=== PATIENT | male | born 1985 | race African-American/Black ===

== ENCOUNTER 2017-05-08 12:09 | Inpatient (IN) | payer OTHER ==
[2017-05-08 15:05] VITALS: BMI 21.7
--- NOTE | 2017-05-08 18:09 | HP ---
COWS - Scale Resting Pulse: 1= [place] 81-100 Sweatin= Chills/Flushing Restless Observation: 1= Difficult to Sit Still Pupil Size: 1= Pupils >than Normal Bone or Joint Aches: 1= Mild Discomfort Runny Nose/ Eye Tearin= Nasal Congestion GI Upset > 30mins: 2= Nausea/Diarrhea Tremor Observation: 2= Slight Tremor Visible Yawning Observation: 1= 1-2x During Session Anxiety or Irritability: 2=Irritable/Anxious Goose Flesh Skin: 3=Piloerection COWS Score: 16 CIWA Score - CIWA Score Nausea/Vomitin Muscle Tremors: 4-Moderate,w/Arms Extend Anxiety: 4-Mod. Anxious/Guarded Agitation: 4-Moderately Restless Paroxysmal Sweats: 3 Orientation: 0-Oriented Tacttile Disturbances: 0-None Auditory Disturbances: 0-None Visual Disturbances: 0-None Headache: 0-None Present CIWA-Ar Total Score: 18 Admission ROS S - HPI Chief Complaint: withdrawal sx from alcohol, heroin and benzodiazepines Allergies/Adverse Reactions: Allergies Allergy/AdvReac Type Severity Reaction Status Date / Time No Known Allergies Allergy Verified 05/08/17 15:38 History of Present Illness: 31 yo m with h/o polysubstance use - daily heroin, alcohol and benzodizepines use, now c/o withdral sx. last used this am. no h/o seizures or DTS in past. PMHX anxiety, depression and insomnia. no h/o OD, no SI at present, thirsty. first admission to [facility] was in treatment as child. Exam Limitations: No Limitations - Ebola screening Have you traveled outside of the country in the last 21 days: No Have you had contact with anyone from an Ebola affected area: No Have you been sick,other than usual withdrawal symptoms: No Do you have a fever: No - Review of Systems Constitutional: Chills, Diaphoresis, Changes in sleep, Weakness, Unintentional Wgt. Loss EENT: reports: Nose Congestion Respiratory: reports: No Symptoms reported Cardiac: reports: No Symptoms Reported GI: reports: Diarrhea, Difficulty Swallowing, Nausea, Poor Appetite, Poor Fluid Intake, Vomiting, Indigestion, Abdominal cramping : reports: No Symptoms Reported Musculoskeletal: reports: Back Pain, Joint Pain, Muscle Pain Integumentary: reports: Flushing, Sweating Neuro: reports: Numbness, Paresthesia, Tingling, Tremors, Weakness Endocrine: reports: Increased Thirst Hematology: reports: No Symptoms Reported Psychiatric: reports: Judgement Intact, Mood/Affect Appropiate, Orientated x3, Anxious, Depressed Other Systems: Reviewed and Negative Patient History - Patient Medical History Hx Anemia: No Hx Asthma: No Hx Chronic Obstructive Pulmonary Disease (COPD): No Hx Cancer: No Hx Cardiac Disorders: No Hx Congestive Heart Failure: No Hx Hypertension: No Hx Hypercholesterolemia: No Hx Pacemaker: No HX Cerebrovascular Accident: No Hx Seizures: No Hx Dementia: No Hx Diabetes: No Hx Gastrointestinal Disorders: No Hx Liver Disease: No Hx Genitourinary Disorders: No Hx Sexually Transmitted Disorders: No Hx Renal Disease (ESRD): No Hx Thyroid Disease: No Hx Human Immunodeficiency Virus (HIV): No Hx Hepatitis C: No Hx Depression: Yes (when withdrawing) Hx Suicide Attempt: No (no SI) Hx Bipolar Disorder: No Hx Schizophrenia: No - Patient Surgical History Past Surgical History: No Anesthesia Reaction: No - PPD History Previous Implant?: Yes Documented Results: Negative w/o proof Implanted On Prior [facility] Admission?: No PPD to be Administered?: Yes - Reproductive History Patient is a Female of Child Bearing Age (11 -55 yrs old): No Patient : No - Smoking Cessation Smoking history: Current every day smoker Aproximately how many cigarettes per day: 5 Hx Chewing Tobacco Use: No Initiated information on smoking cessation: Yes 'Breaking Loose' booklet given: 05/08/17 - Substance & Tx. History Hx Alcohol Use: Yes Hx Substance Use: Yes Substance Use Type: Alcohol, Heroin, Opiates, Prescribed, Tranquilizers Hx Substance Use Treatment: Yes - Substances Abused Alcohol Route: Oral Frequency: Daily Amount used: RUM(1 PINT) Age of first use: 18 Date of Last Use: 05/08/17 Heroin Route: Inhalation Frequency: Daily Amount used: 3-4 BAGS Age of first use: 30 Date of Last Use: 05/08/17 Benzodiazepine (Klonopin) Route: Oral Frequency: 3-6 times per week Amount used: sticks 1-2 at night Age of first use: 30 Date of Last Use: 05/01/17 Family Disease History - Family Disease History Family History: Denies Admission Physical Exam [facility] - Vital Signs Vital Signs: Vital Signs - 24 hr 05/08/17 14:55 Temperature 96.2 F L Pulse Rate 95 H Respiratory 20 Rate Blood Pressure 128/96 - Physical General Appearance: Yes: Nourished, Appropriately Dressed, Disheveled, Mild Distress, Thin, Tremorous, Irritable, Sweating, Anxious HEENTM: Yes: EOMI, Hearing grossly Normal, Normal ENT Inspection, Normocephalic , Normal Voice, KYMBERLY, Pharynx Normal, Nasal Congestion, Rhinorrhea Respiratory: Yes: Within Normal Limits, Chest Non-Tender, Lungs Clear, Normal Breath Sounds, No Respiratory Distress, No Accessory Muscle Use Neck: Yes: Within Normal Limits, No masses,lesions,Nodules, Supple, Trachea in good position Breast: Yes: Breast Exam Deferred Cardiology: Yes: Within Normal Limits, Regular Rhythm, Regular Rate, S1, S2 Abdominal: Yes: Normal Bowel Sounds, Non Tender, Flat, Soft, Increased Bowel Sounds Genitourinary: Yes: Within Normal Limits Back: Yes: Muscle Spasm Musculoskeletal: Yes: Within Normal Limits, full range of Motion, Gait Steady, Pelvis Stable Extremities: Yes: Normal Capillary Refill, Normal Range of Motion, Non-Tender, Tremors Neurological: Yes: rabbit fancier II-XII NML intact, Fully Oriented, Alert, Motor Strength 5/5, Normal Response, Depressed Affect Integumentary: Yes: Normal Color, Warm, Diaphoresis, Moist, Other (poor skin turgor) Lymphatic: Yes: Within Normal Limits - Addiitonal Findings: withdrawal sx present - Diagnostic (1) Opioid dependence with withdrawal Current Visit: Yes Status: Acute (2) Alcohol dependence with uncomplicated withdrawal Current Visit: Yes Status: Acute (3) Nicotine dependence Current Visit: Yes Status: Acute (4) Depression Current Visit: Yes Status: Acute (5) Dehydration Current Visit: Yes Status: Acute Cleared for Admission [facility] - Detox or Rehab [facility] Level of Care: Medically Managed Detox Regimen/Protocol: Methadone/Librium [facility] Breath Alcohol Content Breath Alcohol Content: 0 Urine Drug Screen - Results Drug Screen Negative: No Urine Drug Screen Results: OPI-Opiates
[2017-05-08] MEDS ORDERED: ACETAMINOPHEN 325 MG TABLET (FP) PO PRN (18:12)
[2017-05-08] MEDS ORDERED: guaiFENesin/D-METHORPHAN HB 10 ML UNIT-DOSE CUPS PO PRN (18:12)
[2017-05-08] MEDS ORDERED: MAGNESIUM CITRATE 300 ML BOTTLE PO PRN (18:12)
[2017-05-08] MEDS ORDERED: IBUPROFEN 400 MG TABLET (FP) PO PRN (18:12)
[2017-05-08] MEDS ORDERED: chlordiazePOXIDE HCL 25 MG CAPSULE PO PRN (18:12)
[2017-05-08] MEDS ORDERED: MAGNESIUM HYDROX 2400MG/30ML ORAL SUSPENSION 30 ML CUP PO PRN (18:12)
[2017-05-08] MEDS ORDERED: LOPERAMIDE HCL 2 MG CAPSULE PO PRN (18:12)
[2017-05-08] MEDS ORDERED: MENTHOL/PHENOL 1 EACH UD MM PRN (18:12)
[2017-05-08] MEDS ORDERED: P-EPHED 60MG/TRIPROLIDI 2.5MG TABLET PO PRN (18:12)
[2017-05-08] MEDS ORDERED: MAG HYDROX/AL HYDROX/SIMETH 30 ML UNIT-DOSE CUP PO PRN (18:12)
[2017-05-08] MEDS ORDERED: NICOTINE POLACRILEX 4 MG GUM BUC PRN (18:13)
[2017-05-08] MEDS ORDERED: METHADONE HCL 10 MG TABLET (FOR DETOX USE ONLY) PO ONE ×2 (18:45→23:00)
[2017-05-08] MEDS: NICOTINE 21 MG/24 HOURS TOPICAL PATCH TD SCH (18:58)
[2017-05-08] MEDS: chlordiazePOXIDE HCL 25 MG CAPSULE PO SCH (22:05)
[2017-05-08] MEDS: THIAMINE HCL 100 MG TABLET (FP) PO SCH (22:05)
[2017-05-08 23:17] LABS: URINE APPEARANCE CLEAR; URINE BILIRUBIN NEGATIVE (NEGATIVE); URINE BLOOD NEGATIVE (NEGATIVE); URINE COLOR YELLOW; URINE GLUCOSE (UA) NEGATIVE (NEGATIVE); URINE KETONE NEGATIVE (NEGATIVE); URINE LEUK ESTERASE NEGATIVE (NEGATIVE); URINE NITRITE NEGATIVE (NEGATIVE); URINE PROTEIN NEGATIVE (NEGATIVE); URINE UROBILINOGEN NEGATIVE mg/dL (0.2-1.0)
[2017-05-09] MEDS: chlordiazePOXIDE HCL 25 MG CAPSULE PO SCH ×4 (05:00→22:04)
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
[2017-05-09 09:44] LABS: MCH 29.1 pg (25.7-33.7); MCHC 32.7 g/dl (32.0-35.9); MEAN CELL VOLUME 88.8 fl (80-96); PLATELET COUNT 238 K/MM3 (134-434); RDW 13.3 % (11.9-15.9); WHITE BLOOD COUNT 14.2 K/mm3 (4.0-10.0)
[2017-05-09] MEDS ORDERED: METHADONE HCL 10 MG TABLET (FOR DETOX USE ONLY) PO SCH (10:00)
[2017-05-09 10:08] LABS: ALBUMIN 3.9 g/dl (3.4-5.0); ALK PHOS 91 U/L (45-117); ANION GAP 6 (8-16); BILIRUBIN,TOTAL 0.7 mg/dL (0.2-1.0); CALCIUM 9.8 mg/dL (8.5-10.1); CO2 32 mmol/L (21-32); CREATININE 0.9 mg/dL (0.7-1.3); GLUCOSE,RANDOM 69 mg/dL (74-106); SGOT/AST 14 U/L (15-37); SGPT/ALT 22 U/L (12-78); TOT PROT 7.7 g/dl (6.4-8.2)
[2017-05-09] MEDS: NICOTINE 21 MG/24 HOURS TOPICAL PATCH TD SCH (10:10)
[2017-05-09] MEDS: PRENATAL VITAMINS W/ FOLIC ACID TABLET (FP) PO SCH (10:12)
[2017-05-09 12:12] LABS: URINE LEUK ESTERASE Negative (NEGATIVE)
--- NOTE | 2017-05-09 13:12 | PN ---
[facility] CIWA - CIWA Score Nausea/Vomitin-No Nausea/No Vomiting Muscle Tremors: 4-Moderate,w/Arms Extend Anxiety: 3 Agitation: 1-Slight > Activity Paroxysmal Sweats: No Perspiration Orientation: 0-Oriented Tacttile Disturbances: 2-Mild Itch/Numbness/Burn Auditory Disturbances: 2-Mild Harshness/Frighten Visual Disturbances: 2-Mild Sensitivity Headache: 4-Moderately Severe CIWA-Ar Total Score: 18 S COWS - Scale Resting Pulse: 1= [place] 81-100 Sweatin= Chills/Flushing Restless Observation: 1= Difficult to Sit Still Pupil Size: 0= Normal to Room Light Bone or Joint Aches: 2= Severe Diffuse Aches Runny Nose/ Eye Tearin= Nasal Congestion GI Upset > 30mins: 1= Stomach Cramp Tremor Observation of Outstretched Hands: 2= Slight Tremor Visible Yawning Observation: 1= 1-2x During Session Anxiety or Irritability: 2=Irritable/Anxious Goose Flesh Skin: 3=Piloerection COWS Score: 15 [facility] Progress Note (SOAP) Subjective: Stomach Cramping, Tremors, H/A, Fatigue, Body Aches. Objective: PT. A & O X 3. NO ACUTE DISTRESS. 05/09/17 13:12 Vital Signs Temperature 97.0 F L 05/09/17 09:38 Pulse Rate 98 H 05/09/17 09:38 Respiratory Rate 18 05/09/17 09:38 Blood Pressure 119/82 05/09/17 09:38 O2 Sat by Pulse Oximetry (%) Laboratory Tests 05/08/17 05/09/17 05/09/17 21:07 07:50 07:50 WBC 14.2 H RBC 4.87 Hgb 14.2 Hct 43.3 MCV 88.8 MCH 29.1 MCHC 32.7 RDW 13.3 Plt Count 238 MPV 10.0 Sodium 139 Potassium 4.6 Chloride 101 Carbon Dioxide 32 Anion Gap 6 L BUN 17 Creatinine 0.9 Creat Clearance w eGFR > 60 Random Glucose 69 L Calcium 9.8 Total Bilirubin 0.7 AST 14 L ALT 22 Alkaline Phosphatase 91 Total Protein 7.7 Albumin 3.9 Urine Color Yellow Urine Appearance Clear Urine pH 6.0 Ur Specific [place] 1.015 Urine Protein Negative Urine Glucose (UA) Negative Urine Ketones Negative Urine Blood Negative Urine Nitrite Negative Urine Bilirubin Negative Urine Urobilinogen Negative Ur Leukocyte Esterase Negative RPR Titer 05/09/17 07:50 WBC RBC Hgb Hct MCV MCH MCHC RDW Plt Count MPV Sodium Potassium Chloride Carbon Dioxide Anion Gap BUN Creatinine Creat Clearance w eGFR Random Glucose Calcium Total Bilirubin AST ALT Alkaline Phosphatase Total Protein Albumin Urine Color Urine Appearance Urine pH Ur Specific [place] Urine Protein Urine Glucose (UA) Urine Ketones Urine Blood Urine Nitrite Urine Bilirubin Urine Urobilinogen Ur Leukocyte Esterase RPR Titer Nonreactive LABS NOTED. Assessment: 05/09/17 13:12 WITHDRAWAL SYMPTOMS. Plan: CONTINUE DETOX. INCREASE DAILY PO FLUID INTAKE.
[2017-05-09] MEDS: THIAMINE HCL 100 MG TABLET (FP) PO SCH (22:04)
[2017-05-10] MEDS: chlordiazePOXIDE HCL 25 MG CAPSULE PO SCH ×3 (05:11→17:10)
--- NOTE | 2017-05-10 08:41 | EKG ---
Test Reason : Blood Pressure : / mmHG Vent. Rate : 054 BPM Atrial Rate : 054 BPM P-R Int : 170 ms QRS Dur : 094 ms QT Int : 430 ms P-R-T Axes : 072 019 064 degrees QTc Int : 407 ms SINUS BRADYCARDIA OTHERWISE NORMAL ECG NO PREVIOUS ECGS AVAILABLE Confirmed by JOHNNY REYES MD ([id number]) on 05/10/2017 8:41:04 AM Referred By: Confirmed By:JOHNNY REYES MD
[2017-05-10] MEDS: PRENATAL VITAMINS W/ FOLIC ACID TABLET (FP) PO SCH (10:07)
[2017-05-10] MEDS: METHADONE HCL 5 MG TABLET (FOR DETOX USE ONLY) PO SCH (10:07)
[2017-05-10] MEDS: NICOTINE 21 MG/24 HOURS TOPICAL PATCH TD SCH (10:07)
--- NOTE | 2017-05-10 12:12 | PN ---
S CIWA - CIWA Score Nausea/Vomitin Muscle Tremors: 3 Anxiety: 3 Agitation: 3 Paroxysmal Sweats: 3 Orientation: 0-Oriented Tacttile Disturbances: 1-Very Mild Itch/Numbness Auditory Disturbances: 0-None Visual Disturbances: 0-None Headache: 1-Very Mild CIWA-Ar Total Score: 16 [facility] COWS - Scale Resting Pulse: 2= [place] 101-120 Sweatin=Flushed/Facial Moisture Restless Observation: 3= Extraneous Movement Pupil Size: 0= Normal to Room Light Bone or Joint Aches: 2= Severe Diffuse Aches Runny Nose/ Eye Tearin= Runny Nose/Eyes GI Upset > 30mins: 2= Nausea/Diarrhea Tremor Observation of Outstretched Hands: 2= Slight Tremor Visible Yawning Observation: 0= None Anxiety or Irritability: 2=Irritable/Anxious Goose Flesh Skin: 0=Smooth Skin COWS Score: 17 [facility] Progress Note (SOAP) Subjective: Sweating, headache, nausea, restless, anxious, headache Objective: 05/10/17 12:10 Last Vital Signs Temp Pulse Resp BP Pulse Ox 97.9 F 108 H 18 119/89 05/10/17 10:24 05/10/17 10:24 05/10/17 10:24 05/10/17 10:24 Laboratory Tests 05/08/17 05/09/17 05/09/17 21:07 07:50 07:50 WBC 14.2 H RBC 4.87 Hgb 14.2 Hct 43.3 MCV 88.8 MCH 29.1 MCHC 32.7 RDW 13.3 Plt Count 238 MPV 10.0 Sodium 139 Potassium 4.6 Chloride 101 Carbon Dioxide 32 Anion Gap 6 L BUN 17 Creatinine 0.9 Creat Clearance w eGFR > 60 Random Glucose 69 L Calcium 9.8 Total Bilirubin 0.7 AST 14 L ALT 22 Alkaline Phosphatase 91 Total Protein 7.7 Albumin 3.9 Urine Color Yellow Urine Appearance Clear Urine pH 6.0 Ur Specific [place] 1.015 Urine Protein Negative Urine Glucose (UA) Negative Urine Ketones Negative Urine Blood Negative Urine Nitrite Negative Urine Bilirubin Negative Urine Urobilinogen Negative Ur Leukocyte Esterase Negative RPR Titer 05/09/17 07:50 WBC RBC Hgb Hct MCV MCH MCHC RDW Plt Count MPV Sodium Potassium Chloride Carbon Dioxide Anion Gap BUN Creatinine Creat Clearance w eGFR Random Glucose Calcium Total Bilirubin AST ALT Alkaline Phosphatase Total Protein Albumin Urine Color Urine Appearance Urine pH Ur Specific [place] Urine Protein Urine Glucose (UA) Urine Ketones Urine Blood Urine Nitrite Urine Bilirubin Urine Urobilinogen Ur Leukocyte Esterase RPR Titer Nonreactive Labs noted: wbc 14.2 Assessment: 05/10/17 12:10 Withdrawal symptoms Noted with leukocytosis Plan: Continue detox Leukocytosis: asymptomatic, repeat cbc
[2017-05-10] MEDS: THIAMINE HCL 100 MG TABLET (FP) PO SCH (22:06)
[2017-05-10] MEDS: chlordiazePOXIDE 5 MG CAPSULE PO SCH (22:07)
[2017-05-11] MEDS: chlordiazePOXIDE 5 MG CAPSULE PO SCH ×3 (05:02→17:19)
[2017-05-11] MEDS: NICOTINE 21 MG/24 HOURS TOPICAL PATCH TD SCH (10:04)
[2017-05-11] MEDS: PRENATAL VITAMINS W/ FOLIC ACID TABLET (FP) PO SCH (10:04)
[2017-05-11] MEDS: METHADONE HCL 5 MG TABLET (FOR DETOX USE ONLY) PO SCH (10:04)
[2017-05-11 10:47] LABS: BASOPHIL 0.6 % (0-2.0); EOSINOPHIL 3.9 % (0-4.5); MCH 28.8 pg (25.7-33.7); MCHC 32.1 g/dl (32.0-35.9); MEAN CELL VOLUME 89.6 fl (80-96); MEAN PLT VOLUME 10.2 fl (7.5-11.1); PLATELET COUNT 256 K/MM3 (134-434); WHITE BLOOD COUNT 10.1 K/mm3 (4.0-10.0)
--- NOTE | 2017-05-11 11:19 | PN ---
[facility] Progress Note (SOAP) Subjective: Tremors, Fatigue, Sweating. Objective: PT. A & O X 3. NO ACUTE DISTRESS. 05/11/17 11:16 Vital Signs Temperature 98.1 F 05/11/17 09:15 Pulse Rate 85 05/11/17 09:15 Respiratory Rate 18 05/11/17 09:15 Blood Pressure 115/81 05/11/17 09:15 O2 Sat by Pulse Oximetry (%) Laboratory Tests 05/08/17 05/09/17 05/09/17 21:07 07:50 07:50 WBC 14.2 H RBC 4.87 Hgb 14.2 Hct 43.3 MCV 88.8 MCH 29.1 MCHC 32.7 RDW 13.3 Plt Count 238 MPV 10.0 Neutrophils % Lymphocytes % Monocytes % Eosinophils % Basophils % Sodium 139 Potassium 4.6 Chloride 101 Carbon Dioxide 32 Anion Gap 6 L BUN 17 Creatinine 0.9 Creat Clearance w eGFR > 60 Random Glucose 69 L Calcium 9.8 Total Bilirubin 0.7 AST 14 L ALT 22 Alkaline Phosphatase 91 Total Protein 7.7 Albumin 3.9 Urine Color Yellow Urine Appearance Clear Urine pH 6.0 Ur Specific [place] 1.015 Urine Protein Negative Urine Glucose (UA) Negative Urine Ketones Negative Urine Blood Negative Urine Nitrite Negative Urine Bilirubin Negative Urine Urobilinogen Negative Ur Leukocyte Esterase Negative RPR Titer 05/09/17 05/11/17 07:50 07:00 WBC 10.1 H RBC 5.20 Hgb 15.0 Hct 46.6 MCV 89.6 MCH 28.8 MCHC 32.1 RDW 13.0 Plt Count 256 MPV 10.2 Neutrophils % 55.0 Lymphocytes % 29.6 Monocytes % 10.9 H Eosinophils % 3.9 Basophils % 0.6 Sodium Potassium Chloride Carbon Dioxide Anion Gap BUN Creatinine Creat Clearance w eGFR Random Glucose Calcium Total Bilirubin AST ALT Alkaline Phosphatase Total Protein Albumin Urine Color Urine Appearance Urine pH Ur Specific [place] Urine Protein Urine Glucose (UA) Urine Ketones Urine Blood Urine Nitrite Urine Bilirubin Urine Urobilinogen Ur Leukocyte Esterase RPR Titer Nonreactive LABS NOTED. Assessment: 05/11/17 11:17 WITHDRAWAL SYMPTOMS. Plan: CONTINUE DETOX. INCREASE DAILY PO FLUID INTAKE. ENCOURAGE AMBULATION.
[2017-05-11] MEDS: chlordiazePOXIDE HCL 10 MG CAPSULE PO SCH (22:13)
[2017-05-11] MEDS: THIAMINE HCL 100 MG TABLET (FP) PO SCH (22:13)
[2017-05-12] MEDS: chlordiazePOXIDE HCL 10 MG CAPSULE PO SCH ×3 (05:07→17:30)
--- NOTE | 2017-05-12 09:49 | PN ---
S Progress Note (SOAP) Subjective: mild tremor insomnia irritable Objective: 05/12/17 09:48 Vital Signs Temperature 97.1 F L 05/12/17 09:08 Pulse Rate 101 H 05/12/17 09:08 Respiratory Rate 18 05/12/17 09:08 Blood Pressure 124/92 05/12/17 09:08 O2 Sat by Pulse Oximetry (%) Laboratory Last Values WBC 10.1 K/mm3 (4.0-10.0) H 05/11/17 07:00 RBC 5.20 M/mm3 (4.00-5.60) 05/11/17 07:00 Hgb 15.0 GM/dL (11.7-16.9) 05/11/17 07:00 Hct 46.6 % (35.4-49) 05/11/17 07:00 MCV 89.6 fl (80-96) 05/11/17 07:00 MCH 28.8 pg (25.7-33.7) 05/11/17 07:00 MCHC 32.1 g/dl (32.0-35.9) 05/11/17 07:00 RDW 13.0 % (11.9-15.9) 05/11/17 07:00 Plt Count 256 K/MM3 (134-434) 05/11/17 07:00 MPV 10.2 fl (7.5-11.1) 05/11/17 07:00 Neutrophils % 55.0 % (42.8-82.8) 05/11/17 07:00 Lymphocytes % 29.6 % (8-40) 05/11/17 07:00 Monocytes % 10.9 % (3.8-10.2) H 05/11/17 07:00 Eosinophils % 3.9 % (0-4.5) 05/11/17 07:00 Basophils % 0.6 % (0-2.0) 05/11/17 07:00 Sodium 139 mmol/L (136-145) 05/09/17 07:50 Potassium 4.6 mmol/L (3.5-5.1) 05/09/17 07:50 Chloride 101 mmol/L (98-107) 05/09/17 07:50 Carbon Dioxide 32 mmol/L (21-32) 05/09/17 07:50 Anion Gap 6 (8-16) L 05/09/17 07:50 BUN 17 mg/dL (7-18) 05/09/17 07:50 Creatinine 0.9 mg/dL (0.7-1.3) 05/09/17 07:50 Creat Clearance w eGFR > 60 (>60) 05/09/17 07:50 Random Glucose 69 mg/dL (74-106) L 05/09/17 07:50 Calcium 9.8 mg/dL (8.5-10.1) 05/09/17 07:50 Total Bilirubin 0.7 mg/dL (0.2-1.0) 05/09/17 07:50 AST 14 U/L (15-37) L 05/09/17 07:50 ALT 22 U/L (12-78) 05/09/17 07:50 Alkaline Phosphatase 91 U/L (45-117) 05/09/17 07:50 Total Protein 7.7 g/dl (6.4-8.2) 05/09/17 07:50 Albumin 3.9 g/dl (3.4-5.0) 05/09/17 07:50 Urine Color Yellow 05/08/17 21:07 Urine Appearance Clear 05/08/17 21:07 Urine pH 6.0 (5.0-8.0) 05/08/17 21:07 Ur Specific [place] 1.015 (1.001-1.035) 05/08/17 21:07 Urine Protein Negative (NEGATIVE) 05/08/17 21:07 Urine Glucose (UA) Negative (NEGATIVE) 05/08/17 21:07 Urine Ketones Negative (NEGATIVE) 05/08/17 21:07 Urine Blood Negative (NEGATIVE) 05/08/17 21:07 Urine Nitrite Negative (NEGATIVE) 05/08/17 21:07 Urine Bilirubin Negative (NEGATIVE) 05/08/17 21:07 Urine Urobilinogen Negative mg/dL (0.2-1.0) 05/08/17 21:07 Ur Leukocyte Esterase Negative (NEGATIVE) 05/08/17 21:07 RPR Titer Nonreactive (NONREACTIVE) 05/09/17 07:50 lab noted Assessment: 05/12/17 09:48 mild withdrawal sx Plan: observation with detox regimen
[2017-05-12] MEDS ORDERED: METHADONE HCL 10 MG TABLET (FOR DETOX USE ONLY) PO SCH (10:00)
[2017-05-12] MEDS: NICOTINE 21 MG/24 HOURS TOPICAL PATCH TD SCH (10:08)
[2017-05-12] MEDS: PRENATAL VITAMINS W/ FOLIC ACID TABLET (FP) PO SCH (10:08)
--- NOTE | 2017-05-12 18:58 | PN ---
Psychiatric Progress Note Vital Signs: Vital Signs Period Temp Pulse Resp BP Sys/Bowen Pulse Ox Last 24 Hr 97.1 F-98.6 F 80-101 18-18 112-124/75-92 Date of Session: 05/12/17 Chief Complaint:: " I don't take medications.I mind my own business.I don't bother anyone." HPI: Asked to re-evaluate this patient at the request of his counselor.Reason : patient's mother,according to counselor Panchito Deleon,suggested in a recent telephone conversation that Mr Guzman " needs to be seen by a psychiatrist." Counselor reported patient as bizarre and argumentative at their most recent encounter on the unit.Hospital course,as per nurse's notes,remains uneventful.Detoxification protocol is well tolerated and will be completed tomorrow.No report of episodes of acting out behavior.Patient shows adherence to unit rules/regulations. ROS: Unremarkable.No somatic complaints.Patient is alert and fully oriented.No evidence of cognitive impairment.Adequate behavioral control. Current Medications: Active Medications Generic Name Dose Route Start Last Admin Trade Name Freq PRN Reason Stop Dose Admin Acetaminophen 650 mg 05/08/17 18:12 Tylenol - PO Q4H PRN FEVER OR PAIN Al Hydroxide/Mg Hydroxide 30 ml 05/08/17 18:12 Mylanta Oral Suspension - PO Q6H PRN DYSPEPSIA Eucalyptus/Menthol/Phenol/Sorbitol 1 each 05/08/17 18:12 Cepastat Lozenge - MM Q4H PRN SORE THROAT Guaifenesin 10 ml 05/08/17 18:12 Robitussin Dm - PO Q6H PRN COUGH Ibuprofen 400 mg 05/08/17 18:12 Motrin - PO Q6H PRN SEVERE PAIN Loperamide HCl 4 mg 05/08/17 18:12 Imodium - PO Q6H PRN DIARRHEA Magnesium Citrate 300 ml 05/08/17 18:12 Citroma - PO Q48H PRN CONSTIPATION Magnesium Hydroxide 30 ml 05/08/17 18:12 Milk Of Magnesia - PO DAILY PRN CONSTIPATION Methadone HCl 5 mg 05/13/17 06:00 Dolophine - PO 05/13/17 06:01 DAILY@0600 [facility] Nicotine 21 mg 05/08/17 18:45 05/12/17 10:08 Nicoderm Patch - TD Not Given DAILY KASIE Nicotine Polacrilex 4 mg 05/08/17 18:13 Nicorette Gum - BUC Q2H PRN NICOTINE REPLACEMENT RX Multivit/Folic Acid/Iron 1 tab 05/09/17 10:00 05/12/17 10:08 Vitamins ([facility]) - PO Not Given DAILY KASIE Pseudoephedrine/Triprolidine 1 combo 05/08/17 18:12 Actifed - PO TID PRN NASAL CONGESTION Thiamine HCl 100 mg 05/08/17 22:00 05/11/17 22:13 Vitamin B1 - PO Not Given HS KASIE Medication(s) Change(s): With the exception of medications for detoxification purposes,the patient declines to resume antipsychotic medications. Current Side Effect: No Lab tests ordered: No Lab tests reviewed: Yes Provider note:: Chart reviewed.Previous psychiatric evaluation by Dr Maradiaga : read and appreciated.Patient is re-interviewed at bedside.Found resting in bed, awake,calm and cooperative.Answers questions adequately and relevantly." I am here to deal with my addictions,to get better.I am not here to make friends or play around.That is why I keep my distance from folks here." Mr Guzman feels " just fine " and argues against taking psychiatric medications " the like of haldol,prolixin,cogentin or whatever." He states that he has a place to live ( rented room in [place]),shares the dwelling with trusted friends and he intends to continue " to sniff dope as I see fit." Patient is resistive to the idea of OPD care.He feels that his stay at [facility] did not meet his personal needs and contemplates searching for " an easy job " in the community to support himself.Patient is NOT psychotic at time of this examination.He has the capacity to make his own decisions.He maintains adequate impulse control and he has consistently denied suicidal/homicidal ideation,content or plan.Mr Guzman is at his baseline. Total face to face time:: 45 Mental Status Exam - Mental Status Exam Alert and Oriented to: Time, Place, Person Cognitive Function: Good Patient Appearance: Well Groomed Mood: Withdrawn (calm), Hopeful Affect: Normal Range Patient Behavior: Talkative, Resitive to Care, Cooperative Speech Pattern: Clear, Appropriate Voice Loudness: Normal Thought Process: Goal Oriented Hallucinations: Denies Suicidal Ideation: Denies Homicidal Ideation: Denies Insight/Judgement: Poor Sleep: Well Appetite: Good Muscle strength/Tone: Normal Gait/Station: Normal Psychiatric Treatment Plan - Problem List (1) Alcohol dependence with uncomplicated withdrawal Current Visit: Yes (2) Opioid dependence with withdrawal Current Visit: Yes (3) Nicotine dependence Current Visit: Yes (4) Benzodiazepine dependence Current Visit: Yes (5) Schizophrenia Current Visit: Yes Comment: Suspected in view of past pharmacy claims for prolixin + cogentin.Refractory to the idea of psychiatric OPD care.ASYMPTOMATIC at this time.
[2017-05-12] MEDS: THIAMINE HCL 100 MG TABLET (FP) PO SCH (22:09)
[2017-05-13] MEDS ORDERED: METHADONE HCL 5 MG TABLET (FOR DETOX USE ONLY) PO SCH (06:00)
[2017-05-13 06:14] VITALS: BP 118/78; PULSE 85; TEMP 97.3
--- NOTE | 2017-05-13 08:36 | DS ---
[facility] Detox Discharge Summary Admission Date: 05/08/17 - Physical Exam Results Vital Signs: Vital Signs Temperature 97.3 F L 05/13/17 06:14 Pulse Rate 85 05/13/17 06:14 Respiratory Rate 18 05/13/17 06:14 Blood Pressure 118/78 05/13/17 06:14 O2 Sat by Pulse Oximetry (%) - Medication Discharge Medications: Ambulatory Orders NK [No Known Home Medication] 07/15/15
== END 2017-05-13 08:36 | disposition home or self-care (01) | DRG 897 ==
LOC: YASAS 12:09 → Y3N 16:40
PROVIDERS: ADMIT Internal Medicine; ATTEND Internal Medicine
PROC: HZ2ZZZZ Detoxification Services for Substance Abuse Treatment (ICD-10-PCS; principal; 2017-05-08)
DX: F11.23 Opioid dependence with withdrawal (principal); F13.230 Sedative, hypnotic or anxiolytic dependence with withdrawal, uncomplicated; F10.230 Alcohol dependence with withdrawal, uncomplicated; F17.210 Nicotine dependence, cigarettes, uncomplicated; F20.9 Schizophrenia, unspecified; E86.0 Dehydration
CPT/HCPCS: 36415; 80053; 81003; 85025; 85027; 86593; 93005; 93010

== ENCOUNTER 2017-06-02 10:59 | Inpatient (IN) | payer OTHER ==
[2017-06-02 11:21] VITALS: BMI 21.9
--- NOTE | 2017-06-02 11:57 | HP ---
COWS - Scale Resting Pulse: 1= [place] 81-100 Sweatin= Chills/Flushing Restless Observation: 3= Extraneous Movement Pupil Size: 1= Pupils >than Normal Bone or Joint Aches: 2= Severe Diffuse Aches Runny Nose/ Eye Tearin= Runny Nose/Eyes GI Upset > 30mins: 2= Nausea/Diarrhea Tremor Observation: 2= Slight Tremor Visible Yawning Observation: 2= >3x During Session Anxiety or Irritability: 2=Irritable/Anxious Goose Flesh Skin: 0=Smooth Skin COWS Score: 18 Admission ROS S - HPI Chief Complaint: i need help to stop using heroin Allergies/Adverse Reactions: Allergies Allergy/AdvReac Type Severity Reaction Status Date / Time No Known Allergies Allergy Verified 06/02/17 11:55 History of Present Illness: this 31 years old male with heroin dependence,seeking detox,last detox 05/08/17 to 05/13/17 [facility] syncope last 7 years ago extensive history of heroin also alcohol dependence longest period of sobriety 4 year nicotine dependence plan to go to rehab Exam Limitations: No Limitations - Ebola screening Have you traveled outside of the country in the last 21 days: No Have you had contact with anyone from an Ebola affected area: No Have you been sick,other than usual withdrawal symptoms: No Do you have a fever: No - Review of Systems Constitutional: Chills, Loss of Appetite, Night Sweats, Changes in sleep EENT: reports: Tearing, Nose Congestion Respiratory: reports: No Symptoms reported Cardiac: reports: No Symptoms Reported GI: reports: Diarrhea, Nausea, Poor Appetite, Vomiting : reports: No Symptoms Reported Musculoskeletal: reports: Back Pain, Joint Pain, Muscle Pain, Joint Stiffness Integumentary: reports: Dryness Neuro: reports: Headache, Tremors Endocrine: reports: No Symptoms Reported Hematology: reports: No Symptoms Reported Psychiatric: reports: No Sypmtoms Reported Other Systems: Reviewed and Negative Patient History - Patient Medical History Hx Anemia: No Hx Asthma: No Hx Chronic Obstructive Pulmonary Disease (COPD): No Hx Cancer: No Hx Cardiac Disorders: No Hx Congestive Heart Failure: No Hx Hypertension: No Hx Hypercholesterolemia: No Hx Pacemaker: No HX Cerebrovascular Accident: No Hx Seizures: No Hx Dementia: No Hx Diabetes: No Hx Gastrointestinal Disorders: No Hx Liver Disease: No Hx Genitourinary Disorders: No Hx Sexually Transmitted Disorders: No Hx Renal Disease (ESRD): No Hx Thyroid Disease: No Hx Human Immunodeficiency Virus (HIV): No (last 2016) Hx Hepatitis C: No Hx Depression: Yes (when withdrawing) Hx Suicide Attempt: No (no SI) Hx Bipolar Disorder: No Hx Schizophrenia: No Other Medical History: no suicidal,no homiicdal,fx left ribs,left wrist,right ankle,jaws fx - Patient Surgical History Past Surgical History: No Anesthesia Reaction: No - PPD History Previous Implant?: Yes Implanted On Prior R Admission?: Yes Date: 05/10/17 Results: 0 mm PPD to be Administered?: No - Smoking Cessation Smoking history: Current every day smoker Aproximately how many cigarettes per day: 5 Hx Chewing Tobacco Use: No Initiated information on smoking cessation: Yes 'Breaking Loose' booklet given: 06/02/17 - Substance & Tx. History Hx Alcohol Use: Yes Hx Substance Use: Yes Substance Use Type: Alcohol, Heroin - Substances Abused Heroin Route: Inhalation Frequency: Daily Amount used: 3 BAGS Age of first use: 29 Date of Last Use: 06/01/17 Alcohol Route: Oral Frequency: Daily Amount used: 1 LITER OF [place]QU[place] Age of first use: 16 Date of Last Use: 06/01/17 Family Disease History - Family Disease History Family Disease History: Other: Father (alcohol ) Admission Physical Exam BHS - Vital Signs Vital Signs: Vital Signs - 24 hr 06/02/17 11:17 Temperature 96.9 F L Pulse Rate 92 H Respiratory 20 Rate Blood Pressure 121/73 - Physical General Appearance: Yes: Moderate Distress, Tremorous, Irritable, Sweating, Anxious HEENTM: Yes: Normal ENT Inspection, Pharynx Normal, Nasal Congestion Respiratory: Yes: Lungs Clear, Normal Breath Sounds, No Respiratory Distress Neck: Yes: Within Normal Limits, Supple, Trachea in good position Breast: Yes: Within Normal Limits Cardiology: Yes: Within Normal Limits, Regular Rhythm, S1, S2 Abdominal: Yes: Within Normal Limits, Normal Bowel Sounds, Non Tender, Soft Genitourinary: Yes: Within Normal Limits Back: Yes: Within Normal Limits, Normal Inspection, Muscle Spasm Musculoskeletal: Yes: Back pain, Muscle Pain Extremities: Yes: Within Normal Limits, Normal Range of Motion, Tremors 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 Cleared for Admission [facility] - Detox or Rehab [facility] Level of Care: Medically Managed Detox Regimen/Protocol: Methadone/Librium [facility] Breath Alcohol Content Breath Alcohol Content: 0 Urine Drug Screen - Results Drug Screen Negative: No Urine Drug Screen Results: OPI-Opiates
[2017-06-02] MEDS ORDERED: LOPERAMIDE HCL 2 MG CAPSULE PO PRN (12:14)
[2017-06-02] MEDS ORDERED: MAGNESIUM HYDROX 2400MG/30ML ORAL SUSPENSION 30 ML CUP PO PRN (12:14)
[2017-06-02] MEDS ORDERED: MAG HYDROX/AL HYDROX/SIMETH 30 ML UNIT-DOSE CUP PO PRN (12:14)
[2017-06-02] MEDS ORDERED: IBUPROFEN 400 MG TABLET (FP) PO PRN (12:14)
[2017-06-02] MEDS ORDERED: P-EPHED 60MG/TRIPROLIDI 2.5MG TABLET PO PRN (12:14)
[2017-06-02] MEDS ORDERED: MENTHOL/PHENOL 1 EACH UD MM PRN (12:14)
[2017-06-02] MEDS ORDERED: guaiFENesin/D-METHORPHAN HB 10 ML UNIT-DOSE CUPS PO PRN (12:14)
[2017-06-02] MEDS ORDERED: MAGNESIUM CITRATE 300 ML BOTTLE PO PRN (12:14)
[2017-06-02] MEDS ORDERED: chlordiazePOXIDE HCL 25 MG CAPSULE PO ONE (13:56)
[2017-06-02] MEDS ORDERED: METHADONE HCL 10 MG TABLET (FOR DETOX USE ONLY) PO ONE ×2 (13:56→23:00)
[2017-06-02] MEDS: chlordiazePOXIDE HCL 25 MG CAPSULE PO SCH ×2 (16:52→22:13)
--- NOTE | 2017-06-02 17:39 | CONSULT ---
[facility] Psychiatric Consult - Data Date of interview: 06/02/16 Admission source: [facility] Identifying data: Pt. is a 31 year old male, single, father of one, and currently unemployed. This is one of multiple admission for patient. Substance Abuse History: Reports history of alcohol and heroin use. Pt. positive for opiates. Psychiatric History: Pt. guarded, suspicious, and very brief during the interview. Pt. reports one psychiatric hospitalization but was unable to recall the year and hospital. Pt. then claimed to be reevaluated by a psychiatrist and stated to health science writer, "i'm not psych." Pt. denies h/o suicide attempt. As per Dr. Maradiaga's note on 05/09/2017 patient reluctantly admitted to having several psychiatric admissions at [facility] in [place]. Pt. denied to health science writer ever taking psychotrophic medications while also stating, " I will not take any psych medications." Pt. denies suicidal and homicidal ideation. Physical/Sexual Abuse/Trauma History: Denies. Mental Status Exam - Mental Status Exam Alert and Oriented to: Time, Place, Person Cognitive Function: Fair Patient Appearance: Unkempt Mood: Suspicious, Withdrawn Affect: Flat Patient Behavior: Guarded, Suspicious Speech Pattern: Delayed Voice Loudness: Moderately Soft/Quiet Thought Process: Goal Oriented Thought Disorder: Not Present Hallucinations: Denies Suicidal Ideation: Denies Homicidal Ideation: Denies Sleep: Poorly Appetite: Poor Muscle strength/Tone: Normal Gait/Station: Other (Did not observe patient's gait.) Psychiatric Findings - Problem List ([place] 1, 2,3) (1) Alcohol dependence with uncomplicated withdrawal Current Visit: Yes Status: Acute (2) Nicotine dependence Current Visit: Yes Status: Chronic (3) Opioid dependence with withdrawal Current Visit: Yes Status: Acute (4) Schizophrenia Current Visit: No Status: Suspected Comment: Suspected in view of past pharmacy claims for prolixin + cogentin.Refractory to the idea of psychiatric OPD care.ASYMPTOMATIC at this time. - Initial Treatment Plan Initial Treatment Plan: Psychoeducation provided. Detoxification in progress. Observation and monitor for psychotic decompensation.
[2017-06-02] MEDS: chlordiazePOXIDE HCL 25 MG CAPSULE PO PRN (20:28)
[2017-06-02] MEDS: THIAMINE HCL 100 MG TABLET (FP) PO SCH (22:13)
[2017-06-02 22:24] LABS: URINE APPEARANCE CLEAR; URINE BILIRUBIN NEGATIVE (NEGATIVE); URINE BLOOD NEGATIVE (NEGATIVE); URINE COLOR YELLOW; URINE GLUCOSE (UA) NEGATIVE (NEGATIVE); URINE KETONE NEGATIVE (NEGATIVE); URINE LEUK ESTERASE NEGATIVE (NEGATIVE); URINE NITRITE NEGATIVE (NEGATIVE); URINE PROTEIN NEGATIVE (NEGATIVE); URINE UROBILINOGEN NEGATIVE mg/dL (0.2-1.0)
[2017-06-03] MEDS: chlordiazePOXIDE HCL 25 MG CAPSULE PO SCH ×4 (05:47→22:27)
[2017-06-03 09:51] LABS: CHLORIDE 103 mmol/L (98-107); SODIUM 138 mmol/L (136-145)
--- NOTE | 2017-06-03 09:51 | EKG ---
Test Reason : Blood Pressure : / mmHG Vent. Rate : 083 BPM Atrial Rate : 083 BPM P-R Int : 132 ms QRS Dur : 086 ms QT Int : 390 ms P-R-T Axes : 065 054 057 degrees QTc Int : 458 ms NORMAL SINUS RHYTHM POSSIBLE LEFT ATRIAL ENLARGEMENT BORDERLINE ECG Nonspecific T wave abnormality Confirmed by MD Holly, Eddie ([id number]) on 06/03/2017 9:51:01 AM Referred By: Ashkan HERRERA Confirmed By:Eddie Barrera MD
[2017-06-03 09:53] LABS: HEMATOCRIT 41.2 % (35.4-49); HEMOGLOBIN 13.2 GM/dL (11.7-16.9); MCH 28.7 pg (25.7-33.7); MCHC 32.1 g/dl (32.0-35.9); MEAN CELL VOLUME 89.4 fl (80-96); MEAN PLT VOLUME 11.1 fl (7.5-11.1); PLATELET COUNT 268 K/MM3 (134-434); RDW 13.9 % (11.9-15.9); WHITE BLOOD COUNT 17.1 K/mm3 (4.0-10.0)
[2017-06-03] MEDS ORDERED: METHADONE HCL 10 MG TABLET (FOR DETOX USE ONLY) PO SCH (10:00)
[2017-06-03 10:09] LABS: ALBUMIN 3.8 g/dl (3.4-5.0); ALK PHOS 85 U/L (45-117); ANION GAP 7 (8-16); BILIRUBIN,TOTAL 0.6 mg/dL (0.2-1.0); BLOOD UREA NITROGEN 8 mg/dL (7-18); CALCIUM 9.1 mg/dL (8.5-10.1); CO2 28 mmol/L (21-32); CREATININE 0.8 mg/dL (0.7-1.3); GLUCOSE,RANDOM 98 mg/dL (74-106); SGOT/AST 14 U/L (15-37); SGPT/ALT 22 U/L (12-78); TOT PROT 7.4 g/dl (6.4-8.2)
--- NOTE | 2017-06-03 10:36 | PN ---
BHS COWS - Scale Resting Pulse: 1= [place] 81-100 Sweatin=Flushed/Facial Moisture Restless Observation: 1= Difficult to Sit Still Pupil Size: 0= Normal to Room Light Bone or Joint Aches: 2= Severe Diffuse Aches Runny Nose/ Eye Tearin= Runny Nose/Eyes GI Upset > 30mins: 2= Nausea/Diarrhea Tremor Observation of Outstretched Hands: 2= Slight Tremor Visible Yawning Observation: 2= >3x During Session Anxiety or Irritability: 2=Irritable/Anxious Goose Flesh Skin: 3=Piloerection COWS Score: 19 BHS Progress Note (SOAP) Subjective: sweats shakes interrupted sleep body aches irritable Objective: 06/03/17 10:38 Vital Signs Temperature 98.1 F 06/03/17 06:52 Pulse Rate 74 06/03/17 06:52 Respiratory Rate 18 06/03/17 06:52 Blood Pressure 111/90 06/03/17 06:52 O2 Sat by Pulse Oximetry (%) Laboratory Tests 06/02/17 06/03/17 06/03/17 15:45 06:00 06:00 WBC 17.1 H D RBC 4.60 Hgb 13.2 D Hct 41.2 MCV 89.4 MCH 28.7 MCHC 32.1 RDW 13.9 Plt Count 268 MPV 11.1 Sodium 138 Potassium 4.0 Chloride 103 Carbon Dioxide 28 Anion Gap 7 L BUN 8 D Creatinine 0.8 Creat Clearance w eGFR > 60 Random Glucose 98 D Calcium 9.1 Total Bilirubin 0.6 AST 14 L ALT 22 Alkaline Phosphatase 85 Total Protein 7.4 Albumin 3.8 Urine Color Yellow Urine Appearance Clear Urine pH 5.0 Ur Specific [place] 1.015 Urine Protein Negative Urine Glucose (UA) Negative Urine Ketones Negative Urine Blood Negative Urine Nitrite Negative Urine Bilirubin Negative Urine Urobilinogen Negative aaox3 ambulating no acute distress Assessment: 06/03/17 10:39 withdrawal sx Plan: continue detox increase fluids
[2017-06-03] MEDS: PRENATAL VITAMINS W/ FOLIC ACID TABLET (FP) PO SCH (10:39)
[2017-06-03] MEDS: hydrOXYzine PAMOATE 50 MG CAPSULE (FP) PO PRN ×2 (10:40→15:33)
[2017-06-03] MEDS: chlordiazePOXIDE HCL 25 MG CAPSULE PO PRN (13:17)
[2017-06-03] MEDS: THIAMINE HCL 100 MG TABLET (FP) PO SCH (22:27)
[2017-06-04] MEDS: chlordiazePOXIDE HCL 25 MG CAPSULE PO SCH ×2 (06:01→10:33)
--- NOTE | 2017-06-04 09:24 | PN ---
BHS COWS - Scale Resting Pulse: 1= [place] 81-100 Sweatin=Flushed/Facial Moisture Restless Observation: 1= Difficult to Sit Still Pupil Size: 0= Normal to Room Light Bone or Joint Aches: 2= Severe Diffuse Aches Runny Nose/ Eye Tearin= Nasal Congestion GI Upset > 30mins: 0= None Tremor Observation of Outstretched Hands: 2= Slight Tremor Visible Yawning Observation: 1= 1-2x During Session Anxiety or Irritability: 2=Irritable/Anxious Goose Flesh Skin: 0=Smooth Skin COWS Score: 12 BHS Progress Note (SOAP) Subjective: shakes sweats agitation interrupted sleep Objective: 06/04/17 09:23 Vital Signs Temperature 97.3 F L 06/04/17 04:00 Pulse Rate 83 06/04/17 04:00 Respiratory Rate 18 06/04/17 04:00 Blood Pressure 121/68 06/04/17 04:00 O2 Sat by Pulse Oximetry (%) Laboratory Tests 06/02/17 06/03/17 06/03/17 15:45 06:00 06:00 WBC 17.1 H D RBC 4.60 Hgb 13.2 D Hct 41.2 MCV 89.4 MCH 28.7 MCHC 32.1 RDW 13.9 Plt Count 268 MPV 11.1 Sodium 138 Potassium 4.0 Chloride 103 Carbon Dioxide 28 Anion Gap 7 L BUN 8 D Creatinine 0.8 Creat Clearance w eGFR > 60 Random Glucose 98 D Calcium 9.1 Total Bilirubin 0.6 AST 14 L ALT 22 Alkaline Phosphatase 85 Total Protein 7.4 Albumin 3.8 Urine Color Yellow Urine Appearance Clear Urine pH 5.0 Ur Specific [place] 1.015 Urine Protein Negative Urine Glucose (UA) Negative Urine Ketones Negative Urine Blood Negative Urine Nitrite Negative Urine Bilirubin Negative Urine Urobilinogen Negative Ur Leukocyte Esterase Negative RPR Titer 06/03/17 06:00 WBC RBC Hgb Hct MCV MCH MCHC RDW Plt Count MPV Sodium Potassium Chloride Carbon Dioxide Anion Gap BUN Creatinine Creat Clearance w eGFR Random Glucose Calcium Total Bilirubin AST ALT Alkaline Phosphatase Total Protein Albumin Urine Color Urine Appearance Urine pH Ur Specific [place] Urine Protein Urine Glucose (UA) Urine Ketones Urine Blood Urine Nitrite Urine Bilirubin Urine Urobilinogen Ur Leukocyte Esterase RPR Titer Nonreactive aaox3 ambulating no acute distress Assessment: 01/04/18 09:24 withdrawal sx Plan: continue detox increase fluids
[2017-06-04] MEDS: METHADONE HCL 5 MG TABLET (FOR DETOX USE ONLY) PO SCH (10:33)
[2017-06-04] MEDS: PRENATAL VITAMINS W/ FOLIC ACID TABLET (FP) PO SCH (10:33)
[2017-06-04] MEDS: ONDANSETRON *ODT* 4 MG TABLET SL PRN (11:31)
[2017-06-04] MEDS: ACETAMINOPHEN 325 MG TABLET (FP) PO PRN (12:32)
[2017-06-04] MEDS: chlordiazePOXIDE 5 MG CAPSULE PO SCH ×2 (17:23→22:38)
[2017-06-04] MEDS: THIAMINE HCL 100 MG TABLET (FP) PO SCH (22:38)
[2017-06-05] MEDS: chlordiazePOXIDE HCL 25 MG CAPSULE PO PRN (01:23)
[2017-06-05] MEDS: chlordiazePOXIDE 5 MG CAPSULE PO SCH ×2 (05:32→10:57)
[2017-06-05] MEDS: ONDANSETRON *ODT* 4 MG TABLET SL PRN ×2 (09:38→21:48)
--- NOTE | 2017-06-05 10:03 | PN ---
BHS Progress Note (SOAP) Subjective: nausea muscle cramping agitation Objective: 06/05/17 10:03 Vital Signs Temperature 98.2 F 06/05/17 09:37 Pulse Rate 96 H 06/05/17 09:37 Respiratory Rate 18 06/05/17 09:37 Blood Pressure 124/83 06/05/17 09:37 O2 Sat by Pulse Oximetry (%) aaox3 ambulating no acute distress Assessment: 06/05/17 10:08 withdrawal sx Plan: continue detox increase fluids flexiril prn zofran prn
[2017-06-05] MEDS: METHADONE HCL 5 MG TABLET (FOR DETOX USE ONLY) PO SCH (10:56)
[2017-06-05] MEDS: CYCLOBENZAPRINE HCL 10 MG TABLET (FP) PO PRN ×2 (11:00→22:21)
[2017-06-05] MEDS: PRENATAL VITAMINS W/ FOLIC ACID TABLET (FP) PO SCH (11:01)
[2017-06-05] MEDS: ACETAMINOPHEN 325 MG TABLET (FP) PO PRN (13:58)
[2017-06-05] MEDS: chlordiazePOXIDE HCL 10 MG CAPSULE PO SCH ×2 (18:07→22:21)
[2017-06-05] MEDS: hydrOXYzine PAMOATE 50 MG CAPSULE (FP) PO PRN (22:21)
[2017-06-05] MEDS: THIAMINE HCL 100 MG TABLET (FP) PO SCH (22:21)
[2017-06-06] MEDS: chlordiazePOXIDE HCL 10 MG CAPSULE PO SCH ×2 (05:42→10:26)
[2017-06-06] MEDS: ACETAMINOPHEN 325 MG TABLET (FP) PO PRN (07:57)
[2017-06-06] MEDS ORDERED: METHADONE HCL 10 MG TABLET (FOR DETOX USE ONLY) PO SCH (10:00)
[2017-06-06] MEDS: PRENATAL VITAMINS W/ FOLIC ACID TABLET (FP) PO SCH (10:25)
--- NOTE | 2017-06-06 11:39 | PN ---
BHS Progress Note (SOAP) Subjective: ALERT,IRRITABLE,ANXIOUS,INTERRUPTED SLEEP Objective: 06/06/17 11:38 Vital Signs Temperature 98 F 06/06/17 10:16 Pulse Rate 117 H 06/06/17 10:16 Respiratory Rate 18 06/06/17 10:16 Blood Pressure 119/81 06/06/17 10:16 O2 Sat by Pulse Oximetry (%) Assessment: 06/06/17 11:39 WITHDRAWAL SYMPTOM Plan: CONTINUE DETOX
[2017-06-06] MEDS: THIAMINE HCL 100 MG TABLET (FP) PO SCH (22:17)
[2017-06-06] MEDS: CYCLOBENZAPRINE HCL 10 MG TABLET (FP) PO PRN (22:17)
[2017-06-07] MEDS ORDERED: METHADONE HCL 5 MG TABLET (FOR DETOX USE ONLY) PO SCH (06:00)
[2017-06-07] MEDS: PRENATAL VITAMINS W/ FOLIC ACID TABLET (FP) PO SCH (10:11)
[2017-06-07] MEDS: ONDANSETRON *ODT* 4 MG TABLET SL PRN (10:51)
--- NOTE | 2017-06-07 12:04 | PN ---
BHS Progress Note (SOAP) Subjective: mild gi distress unable to sleep through the night Objective: 06/07/17 12:00 Vital Signs Temperature 96.4 F L 06/07/17 10:00 Pulse Rate 122 H 06/07/17 10:00 Respiratory Rate 18 06/07/17 10:00 Blood Pressure 150/79 06/07/17 10:00 O2 Sat by Pulse Oximetry (%) Laboratory Last Values WBC 17.1 K/mm3 (4.0-10.0) H D 06/03/17 06:00 RBC 4.60 M/mm3 (4.00-5.60) 06/03/17 06:00 Hgb 13.2 GM/dL (11.7-16.9) D 06/03/17 06:00 Hct 41.2 % (35.4-49) 06/03/17 06:00 MCV 89.4 fl (80-96) 06/03/17 06:00 MCH 28.7 pg (25.7-33.7) 06/03/17 06:00 MCHC 32.1 g/dl (32.0-35.9) 06/03/17 06:00 RDW 13.9 % (11.9-15.9) 06/03/17 06:00 Plt Count 268 K/MM3 (134-434) 06/03/17 06:00 MPV 11.1 fl (7.5-11.1) 06/03/17 06:00 Sodium 138 mmol/L (136-145) 06/03/17 06:00 Potassium 4.0 mmol/L (3.5-5.1) 06/03/17 06:00 Chloride 103 mmol/L (98-107) 06/03/17 06:00 Carbon Dioxide 28 mmol/L (21-32) 06/03/17 06:00 Anion Gap 7 (8-16) L 06/03/17 06:00 BUN 8 mg/dL (7-18) D 06/03/17 06:00 Creatinine 0.8 mg/dL (0.7-1.3) 06/03/17 06:00 Creat Clearance w eGFR > 60 (>60) 06/03/17 06:00 Random Glucose 98 mg/dL (74-106) D 06/03/17 06:00 Calcium 9.1 mg/dL (8.5-10.1) 06/03/17 06:00 Total Bilirubin 0.6 mg/dL (0.2-1.0) 06/03/17 06:00 AST 14 U/L (15-37) L 06/03/17 06:00 ALT 22 U/L (12-78) 06/03/17 06:00 Alkaline Phosphatase 85 U/L (45-117) 06/03/17 06:00 Total Protein 7.4 g/dl (6.4-8.2) 06/03/17 06:00 Albumin 3.8 g/dl (3.4-5.0) 06/03/17 06:00 Urine Color Yellow 06/02/17 15:45 Urine Appearance Clear 06/02/17 15:45 Urine pH 5.0 (5.0-8.0) 06/02/17 15:45 Ur Specific [place] 1.015 (1.001-1.035) 06/02/17 15:45 Urine Protein Negative (NEGATIVE) 06/02/17 15:45 Urine Glucose (UA) Negative (NEGATIVE) 06/02/17 15:45 Urine Ketones Negative (NEGATIVE) 06/02/17 15:45 Urine Blood Negative (NEGATIVE) 06/02/17 15:45 Urine Nitrite Negative (NEGATIVE) 06/02/17 15:45 Urine Bilirubin Negative (NEGATIVE) 06/02/17 15:45 Urine Urobilinogen Negative mg/dL (0.2-1.0) 06/02/17 15:45 Ur Leukocyte Esterase Negative (NEGATIVE) 06/02/17 15:45 RPR Titer Nonreactive (NONREACTIVE) 06/03/17 06:00 lab noted Assessment: 06/07/17 12:03 withdrawal sx Plan: continue detox
[2017-06-07] MEDS: hydrOXYzine PAMOATE 50 MG CAPSULE (FP) PO PRN (22:13)
[2017-06-07] MEDS: CYCLOBENZAPRINE HCL 10 MG TABLET (FP) PO PRN (22:13)
[2017-06-07] MEDS: THIAMINE HCL 100 MG TABLET (FP) PO SCH (22:13)
--- NOTE | 2017-06-08 09:10 | DS ---
[facility] Detox Discharge Summary Admission Date: 06/02/17 Discharge Date: 06/08/17 - History Present History: Alcohol Dependence, Opioid Dependence, Sedative Dependence - Physical Exam Results Vital Signs: Vital Signs Temperature 97 F L 06/08/17 06:08 Pulse Rate 86 06/08/17 06:08 Respiratory Rate 18 06/08/17 06:08 Blood Pressure 111/71 06/08/17 06:08 O2 Sat by Pulse Oximetry (%) - Treatment Hospital Course: Detox Protocol Followed, Detoxed Safely, Responded well, Discharged Condition Good, Rehab Referral Accepted - Medication Discharge Medications: Ambulatory Orders NK [No Known Home Medication] 07/15/15 - Diagnosis (1) Alcohol dependence with uncomplicated withdrawal Current Visit: Yes Status: Chronic (2) Opioid dependence with withdrawal Current Visit: Yes Status: Chronic (3) Nicotine dependence Current Visit: Yes Status: Chronic Qualifiers: Nicotine product type: cigarettes Substance use status: uncomplicated Qualified Code(s): F17.210 - Nicotine dependence, cigarettes, uncomplicated (4) Abrasion Current Visit: No Status: Acute (5) Benzodiazepine dependence Current Visit: Yes Status: Chronic (6) Depression Current Visit: No Status: Chronic (7) Schizophrenia Current Visit: No Status: Suspected - AMA Did Patient Leave Against Medical Advice: No
[2017-06-08] MEDS: PRENATAL VITAMINS W/ FOLIC ACID TABLET (FP) PO SCH (10:04)
[2017-06-08 16:14] VITALS: BP 134/87; PULSE 122; TEMP 98.6
== END 2017-06-08 16:10 | disposition other institution (70) | DRG 897 ==
LOC: YASAS 10:59 → Y6N 13:02
PROVIDERS: ADMIT Internal Medicine; ATTEND Internal Medicine
PROC: HZ2ZZZZ Detoxification Services for Substance Abuse Treatment (ICD-10-PCS; principal; 2017-06-02)
DX: F19.230 Other psychoactive substance dependence with withdrawal, uncomplicated (principal); F13.20 Sedative, hypnotic or anxiolytic dependence, uncomplicated; F11.23 Opioid dependence with withdrawal; F10.230 Alcohol dependence with withdrawal, uncomplicated; F17.210 Nicotine dependence, cigarettes, uncomplicated; F32.9 Major depressive disorder, single episode, unspecified; F25.9 Schizoaffective disorder, unspecified; T14.8XXA Other injury of unspecified body region, initial encounter
CPT/HCPCS: 36415; 80053; 81003; 85027; 86593; 93005; 93010

== ENCOUNTER 2018-07-14 11:22 | Inpatient (IN) | payer OTHER ==
[2018-07-14 11:42] VITALS: BMI 21.9
--- NOTE | 2018-07-14 12:44 | HP ---
COWS - Scale Resting Pulse: 2= [place] 101-120 Sweatin= Chills/Flushing Restless Observation: 3= Extraneous Movement Pupil Size: 1= Pupils >than Normal Bone or Joint Aches: 2= Severe Diffuse Aches Runny Nose/ Eye Tearin= Runny Nose/Eyes GI Upset > 30mins: 3= Vomiting/Diarrhea Tremor Observation: 2= Slight Tremor Visible Yawning Observation: 1= 1-2x During Session Anxiety or Irritability: 2=Irritable/Anxious Goose Flesh Skin: 0=Smooth Skin COWS Score: 19 CIWA Score Nausea/Vomitin Muscle Tremors: 2 Anxiety: 2 Agitation: 2 Paroxysmal Sweats: 1-Minimal Palms Moist Orientation: 0-Oriented Tacttile Disturbances: 1-Very Mild Itch/Numbness Auditory Disturbances: 1-Very Mild Visual Disturbances: 0-None Headache: 2-Mild CIWA-Ar Total Score: 13 - Admission Criteria [facility] Guidelines: Admission for Medically Managed Detox: Requires at least one of the followin. CIWA greater than 12 2. Seizures within the past 24 hours 3. Delirium tremens within the past 24 hours 4. Hallucinations within the past 24 hours 5. Acute intervention needed for co occurring medical disorder 6. Acute intervention needed for co occurring psychiatric disorder 7. Severe withdrawal that cannot be handled at a lower level of care (continued vomiting, continued diarrhea, abnormal vital signs) requiring intravenous medication and/or fluids 8. Patient presents the following: CIWA greater than 12 Admission Criteria Met: Admission criteria met Admission ROS [facility] Chief Complaint: i need help to stop using heroin and alcohol Allergies/Adverse Reactions: Allergies Allergy/AdvReac Type Severity Reaction Status Date / Time ibuprofen [From Motrin] Allergy Severe Hives Verified 07/14/18 11:53 History of Present Illness: this 32 years old male with heroin dependence and alcohol dependence ,seeking detox,withdrawal symptom,last detox 06/02/17 to 06/08/17 completed nicotine dependence anxiety,insomnia,on med weight decreased multiple admissions but relapsing longest period of sobriety 5 months Exam Limitations: No Limitations - Ebola screening Have you traveled outside of the country in the last 21 days: No Have you had contact with anyone from an Ebola affected area: No Have you been sick,other than usual withdrawal symptoms: No Do you have a fever: No - Review of Systems Constitutional: Chills, Loss of Appetite, Malaise, Night Sweats, Changes in sleep, Weakness, Unintentional Wgt. Loss EENT: reports: Tearing, Nose Congestion Respiratory: reports: No Symptoms reported Cardiac: reports: Palpitations GI: reports: Diarrhea, Nausea, Vomiting, Abdominal cramping : reports: No Symptoms Reported Musculoskeletal: reports: Back Pain, Joint Pain, Muscle Pain, Joint Stiffness Integumentary: reports: Dryness Neuro: reports: Headache, Tremors Endocrine: reports: No Symptoms Reported Hematology: reports: No Symptoms Reported Psychiatric: reports: No Sypmtoms Reported, Judgement Intact, Mood/Affect Appropiate, Orientated x3, Anxious, other (insomnia) Patient History - Patient Medical History Hx Anemia: No Hx Asthma: No Hx Chronic Obstructive Pulmonary Disease (COPD): No Hx Cancer: No Hx Cardiac Disorders: No Hx Congestive Heart Failure: No Hx Hypertension: No Hx Hypercholesterolemia: No Hx Pacemaker: No HX Cerebrovascular Accident: No Hx Seizures: No Hx Dementia: No Hx Diabetes: No Hx Gastrointestinal Disorders: No Hx Liver Disease: No Hx Genitourinary Disorders: No Hx Sexually Transmitted Disorders: No Hx Renal Disease (ESRD): No Hx Thyroid Disease: No Hx Human Immunodeficiency Virus (HIV): No (last 2017 negative) Hx Hepatitis C: No Hx Depression: No Hx Suicide Attempt: No Hx Bipolar Disorder: No Hx Schizophrenia: No Other Medical History: anxiety,insomnia, - Patient Surgical History Past Surgical History: No Hx Neurologic Surgery: No Hx Cataract Extraction: No Hx Cardiac Surgery: No Hx Lung Surgery: No Hx Breast Surgery: No Hx Breast Biopsy: No Hx Abdominal Surgery: No Hx Appendectomy: No Hx Cholecystectomy: No Hx Genitourinary Surgery: No Hx Section: No Hx Orthopedic Surgery: No Anesthesia Reaction: No - PPD History Previous Implant?: Yes Documented Results: Negative w/proof Implanted On Prior R Admission?: Yes Date: 05/10/17 Results: 0 mm PPD to be Administered?: Yes - Smoking Cessation Smoking history: Current every day smoker Aproximately how many cigarettes per day: 20 Hx Chewing Tobacco Use: No Initiated information on smoking cessation: Yes 'Breaking Loose' booklet given: 07/14/18 - Substance & Tx. History Hx Alcohol Use: Yes Hx Substance Use: Yes Substance Use Type: Alcohol, Heroin Hx Substance Use Treatment: Yes - Substances Abused Heroin Route: Inhalation Frequency: Daily Amount used: 4-7 bags Age of first use: 28 Date of Last Use: 07/12/18 Alcohol-beer Route: Oral Frequency: Daily Amount used: 1-6 pk. Age of first use: 17 Date of Last Use: 07/13/18 Family Disease History - Family Disease History Family Disease History: Other: Father (alcohol ) Admission Physical Exam [facility] - Vital Signs Vital Signs: Vital Signs - 24 hr 07/14/18 11:24 Temperature 97.2 F L Pulse Rate 101 H Respiratory 20 Rate Blood Pressure 123/80 - Physical General Appearance: Yes: Moderate Distress, Tremorous, Irritable, Sweating, Anxious HEENTM: Yes: Normal ENT Inspection, [place]MBERLY, Pharynx Normal Respiratory: Yes: Lungs Clear, Normal Breath Sounds, No Respiratory Distress Neck: Yes: Within Normal Limits, Supple, Trachea in good position Breast: Yes: Within Normal Limits Cardiology: Yes: Within Normal Limits, Regular Rhythm, Regular Rate, S1, S2 Abdominal: Yes: Within Normal Limits, Normal Bowel Sounds, Non Tender, Soft Genitourinary: Yes: Within Normal Limits Back: Yes: Normal Inspection, Muscle Spasm Musculoskeletal: Yes: Back pain, Joint Stiffness, Muscle Pain Extremities: Yes: Normal Range of Motion, Tremors 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, Fully Oriented, Alert, Motor Strength 5/5 Integumentary: Yes: Dry Lymphatic: Yes: Within Normal Limits - Diagnostic (1) Opioid dependence with withdrawal Current Visit: No Status: Chronic (2) Alcohol dependence with uncomplicated withdrawal Current Visit: No Status: Chronic (3) Nicotine dependence Current Visit: No Status: Chronic Qualifiers: Nicotine product type: cigarettes Substance use status: uncomplicated Qualified Code(s): F17.210 - Nicotine dependence, cigarettes, uncomplicated (4) Schizophrenia Current Visit: No Status: Suspected Comment: Suspected in view of past pharmacy claims for prolixin + cogentin.Refractory to the idea of psychiatric OPD care.ASYMPTOMATIC at this time. (5) Nicotine dependence Current Visit: Yes Status: Acute (6) Weight loss Current Visit: Yes Status: Acute Cleared for Admission [facility] - Detox or Rehab [facility] Level of Care: Medically Managed Detox Regimen/Protocol: Methadone/Librium [facility] Breath Alcohol Content Breath Alcohol Content: 0.003 Urine Drug Screen - Results Drug Screen Negative: No Urine Drug Screen Results: OPI-Opiates Inpatient Rehab Admission - Rehab Decision to Admit Inpatient rehab admission?: No
[2018-07-14] MEDS ORDERED: MAG HYDROX/AL HYDROX/SIMETH 30 ML UNIT-DOSE CUP PO PRN (12:56)
[2018-07-14] MEDS ORDERED: LOPERAMIDE HCL 2 MG CAPSULE PO PRN (12:56)
[2018-07-14] MEDS ORDERED: P-EPHED 60MG/TRIPROLIDI 2.5MG TABLET PO PRN (12:56)
[2018-07-14] MEDS ORDERED: IBUPROFEN 400 MG TABLET (FP) PO PRN (12:56)
[2018-07-14] MEDS ORDERED: guaiFENesin/D-METHORPHAN HB 10 ML UNIT-DOSE CUPS PO PRN (12:56)
[2018-07-14] MEDS ORDERED: MENTHOL/PHENOL 1 EACH UD MM PRN (12:56)
[2018-07-14] MEDS ORDERED: NICOTINE POLACRILEX 2 MG GUM BC PRN (12:56)
[2018-07-14] MEDS ORDERED: ACETAMINOPHEN 325 MG TABLET (FP) PO PRN (12:56)
[2018-07-14] MEDS ORDERED: MAGNESIUM CITRATE 300 ML BOTTLE PO PRN (12:56)
[2018-07-14] MEDS ORDERED: MAGNESIUM HYDROX 2400MG/30ML ORAL SUSPENSION 30 ML CUP PO PRN (12:56)
--- NOTE | 2018-07-14 13:53 | CONSULT ---
[facility] Psychiatric Consult - Data Date of interview: 07/14/18 Admission source: [facility] Identifying data: This is one of the multiple admissions to [address] [place] [address] rehabilitation for this 32 years old AA father of one,homekless,unemploeyed admitted for Opioid,alcohol dependence. Substance Abuse History: Reports drinking since young age,heroin . Psychiatric History: Wrter contacted patient's pharmacy,according to them he was not filling psychotropic medications for about 2 years. Mental Status Exam - Mental Status Exam Alert and Oriented to: Time, Place, Person Cognitive Function: Grossly Intact Patient Appearance: Unkempt Mood: Depressed, Sad Affect: Mood Congruent, Constricted Patient Behavior: Cooperative Speech Pattern: Clear Voice Loudness: Normal Thought Process: Goal Oriented Thought Disorder: Being Controlled Hallucinations: Denies Suicidal Ideation: Denies Homicidal Ideation: Denies Insight/Judgement: Fair Sleep: Difficulty falling asleep Appetite: Fair Muscle strength/Tone: Normal Gait/Station: Normal Psychiatric Findings - Problem List ([place] 1, 2,3) (1) Nicotine dependence Current Visit: Yes Status: Chronic (2) Alcohol dependence with uncomplicated withdrawal Current Visit: Yes Status: Chronic (3) Benzodiazepine dependence Current Visit: Yes Status: Chronic (4) Nicotine dependence Current Visit: Yes Status: Chronic Qualifiers: Nicotine product type: cigarettes Substance use status: uncomplicated Qualified Code(s): F17.210 - Nicotine dependence, cigarettes, uncomplicated (5) Opioid dependence with withdrawal Current Visit: Yes Status: Chronic (6) Schizophrenia Current Visit: Yes Status: Chronic - Initial Treatment Plan Initial Treatment Plan: Patient is intoxicated,not psychotic at present.Consider psychotropic medications if needed. Will monitor progress.
[2018-07-14] MEDS ORDERED: METHADONE HCL 10 MG TABLET (FOR DETOX USE ONLY) PO ONE ×2 (14:00→23:00)
[2018-07-14] MEDS: NICOTINE 21 MG/24 HOURS TOPICAL PATCH TD SCH (14:03)
[2018-07-14] MEDS: chlordiazePOXIDE HCL 25 MG CAPSULE PO SCH ×2 (18:47→22:52)
[2018-07-14] MEDS ORDERED: MELATONIN 5 MG TABLETS PO PRN (22:00)
[2018-07-14] MEDS: THIAMINE HCL 100 MG TABLET (FP) PO SCH (22:51)
[2018-07-14] MEDS: hydrOXYzine PAMOATE 25 MG CAPSULE (FP) PO PRN (22:51)
[2018-07-15] MEDS: chlordiazePOXIDE HCL 25 MG CAPSULE PO SCH ×4 (05:29→22:24)
[2018-07-15] MEDS ORDERED: METHADONE HCL 10 MG TABLET (FOR DETOX USE ONLY) PO SCH (10:00)
--- NOTE | 2018-07-15 10:02 | PN ---
BHS CIWA - CIWA Score Nausea/Vomitin Muscle Tremors: 2 Anxiety: 2 Agitation: 2 Paroxysmal Sweats: 1-Minimal Palms Moist Orientation: 0-Oriented Tacttile Disturbances: 1-Very Mild Itch/Numbness Auditory Disturbances: 1-Very Mild Visual Disturbances: 0-None Headache: 2-Mild CIWA-Ar Total Score: 13 BHS COWS - Scale Resting Pulse: 0= [place] 80 or Below Sweatin= Chills/Flushing Restless Observation: 3= Extraneous Movement Pupil Size: 1= Pupils >than Normal Bone or Joint Aches: 2= Severe Diffuse Aches Runny Nose/ Eye Tearin= Nasal Congestion GI Upset > 30mins: 2= Nausea/Diarrhea Tremor Observation of Outstretched Hands: 2= Slight Tremor Visible Yawning Observation: 1= 1-2x During Session Anxiety or Irritability: 2=Irritable/Anxious Goose Flesh Skin: 0=Smooth Skin COWS Score: 15 BHS Progress Note (SOAP) Subjective: alert,irritable,anxious,interrupted sleep,pain in the body and back, Objective: 07/15/18 10:01 Vital Signs Temperature 97.9 F 07/15/18 09:04 Pulse Rate 68 07/15/18 09:04 Respiratory Rate 18 07/15/18 09:04 Blood Pressure 122/73 07/15/18 09:04 O2 Sat by Pulse Oximetry (%) 07/15/18 10:02 Laboratory Last Values HIV 1&2 Antibody Screen Negative 07/14/18 13:00 HIV P24 Antigen Negative 07/14/18 13:00 labs pending Assessment: 07/15/18 10:02 withdrawal symptom Plan: continue detox
[2018-07-15] MEDS: PRENATAL VITAMINS W/ FOLIC ACID TABLET (FP) PO SCH (10:42)
[2018-07-15] MEDS: NICOTINE 21 MG/24 HOURS TOPICAL PATCH TD SCH (10:43)
[2018-07-15] MEDS: chlordiazePOXIDE HCL 25 MG CAPSULE PO PRN ×2 (10:43→15:18)
[2018-07-15 10:49] LABS: ALBUMIN 4.2 g/dl (3.4-5.0); ALK PHOS 75 U/L (45-117); ANION GAP 9 MMOL/L (8-16); BILIRUBIN,TOTAL 0.7 mg/dL (0.2-1); BLOOD UREA NITROGEN 23 mg/dL (7-18); CALCIUM 9.6 mg/dL (8.5-10.1); CHLORIDE 103 mmol/L (98-107); CO2 28 mmol/L (21-32); GLUCOSE,RANDOM 104 mg/dL (74-106); POTASSIUM 3.8 mmol/L (3.5-5.1); SGOT/AST 17 U/L (15-37); SGPT/ALT 22 U/L (13-61); SODIUM 140 mmol/L (136-145); TOT PROT 7.7 g/dl (6.4-8.2)
[2018-07-15 11:07] LABS: HEMATOCRIT 37.7 % (35.4-49); HEMOGLOBIN 12.6 GM/dL (11.7-16.9); MCH 29.7 pg (25.7-33.7); MCHC 33.4 g/dl (32.0-35.9); MEAN CELL VOLUME 88.7 fl (80-96); MEAN PLT VOLUME 11.4 fl (7.5-11.1); PLATELET COUNT 211 K/MM3 (134-434); RBC 4.25 M/mm3 (4.00-5.60); RDW 12.8 % (11.9-15.9); WHITE BLOOD COUNT 13.9 K/mm3 (4.0-10.0)
[2018-07-15] MEDS: hydrOXYzine PAMOATE 25 MG CAPSULE (FP) PO PRN (15:19)
[2018-07-15] MEDS: THIAMINE HCL 100 MG TABLET (FP) PO SCH (22:25)
[2018-07-16] MEDS: chlordiazePOXIDE HCL 25 MG CAPSULE PO SCH ×2 (05:44→10:30)
[2018-07-16] MEDS: PRENATAL VITAMINS W/ FOLIC ACID TABLET (FP) PO SCH (10:30)
[2018-07-16] MEDS: METHADONE HCL 5 MG TABLET (FOR DETOX USE ONLY) PO SCH (10:30)
[2018-07-16] MEDS: NICOTINE 21 MG/24 HOURS TOPICAL PATCH TD SCH (10:31)
--- NOTE | 2018-07-16 10:34 | PN ---
S CIWA - CIWA Score Nausea/Vomitin Muscle Tremors: 2 Anxiety: 2 Agitation: 2 Paroxysmal Sweats: 1-Minimal Palms Moist Orientation: 0-Oriented Tacttile Disturbances: 1-Very Mild Itch/Numbness Auditory Disturbances: 1-Very Mild Visual Disturbances: 0-None Headache: 2-Mild CIWA-Ar Total Score: 13 BHS COWS - Scale Resting Pulse: 1= [place] 81-100 Sweatin= Chills/Flushing Restless Observation: 1= Difficult to Sit Still Pupil Size: 1= Pupils >than Normal Bone or Joint Aches: 2= Severe Diffuse Aches Runny Nose/ Eye Tearin= Nasal Congestion GI Upset > 30mins: 2= Nausea/Diarrhea Tremor Observation of Outstretched Hands: 2= Slight Tremor Visible Yawning Observation: 1= 1-2x During Session Anxiety or Irritability: 1=Feels Anxious/Irritable Goose Flesh Skin: 3=Piloerection COWS Score: 16 BHS Progress Note (SOAP) Subjective: alert,irritable,anxious,interrupted sleep,pain in the body,tremor Objective: 07/16/18 10:30 Vital Signs Temperature 98.4 F 07/16/18 09:17 Pulse Rate 84 07/16/18 09:17 Respiratory Rate 18 07/16/18 09:17 Blood Pressure 130/63 07/16/18 09:17 O2 Sat by Pulse Oximetry (%) Laboratory Last Values WBC 13.9 K/mm3 (4.0-10.0) H 07/15/18 06:00 RBC 4.25 M/mm3 (4.00-5.60) 07/15/18 06:00 Hgb 12.6 GM/dL (11.7-16.9) 07/15/18 06:00 Hct 37.7 % (35.4-49) 07/15/18 06:00 MCV 88.7 fl (80-96) 07/15/18 06:00 MCH 29.7 pg (25.7-33.7) 07/15/18 06:00 MCHC 33.4 g/dl (32.0-35.9) 07/15/18 06:00 RDW 12.8 % (11.9-15.9) 07/15/18 06:00 Plt Count 211 K/MM3 (134-434) D 07/15/18 06:00 MPV 11.4 fl (7.5-11.1) H 07/15/18 06:00 Sodium 140 mmol/L (136-145) 07/15/18 06:00 Potassium 3.8 mmol/L (3.5-5.1) 07/15/18 06:00 Chloride 103 mmol/L (98-107) 07/15/18 06:00 Carbon Dioxide 28 mmol/L (21-32) 07/15/18 06:00 Anion Gap 9 MMOL/L (8-16) 07/15/18 06:00 BUN 23 mg/dL (7-18) H 07/15/18 06:00 Creatinine 1.0 mg/dL (0.55-1.3) 07/15/18 06:00 Creat Clearance w eGFR > 60 (>60) 07/15/18 06:00 Random Glucose 104 mg/dL (74-106) 07/15/18 06:00 Calcium 9.6 mg/dL (8.5-10.1) 07/15/18 06:00 Total Bilirubin 0.7 mg/dL (0.2-1) 07/15/18 06:00 AST 17 U/L (15-37) 07/15/18 06:00 ALT 22 U/L (13-61) 07/15/18 06:00 Alkaline Phosphatase 75 U/L (45-117) 07/15/18 06:00 Total Protein 7.7 g/dl (6.4-8.2) 07/15/18 06:00 Albumin 4.2 g/dl (3.4-5.0) 07/15/18 06:00 RPR Titer Nonreactive (NONREACTIVE) 07/15/18 06:00 HIV 1&2 Antibody Screen Negative 07/14/18 13:00 HIV P24 Antigen Negative 07/14/18 13:00 Assessment: 07/16/18 10:31 withdrawal symptom Plan: continue detox,encourage oral fluid,wbc 13,900,bun 23, encourage oral fluid,repeat cbc,cmp in am
[2018-07-16] MEDS: hydrOXYzine PAMOATE 25 MG CAPSULE (FP) PO PRN ×3 (12:34→22:27)
[2018-07-16] MEDS: chlordiazePOXIDE HCL 25 MG CAPSULE PO PRN (12:34)
[2018-07-16] MEDS: chlordiazePOXIDE 5 MG CAPSULE PO SCH ×2 (18:31→22:27)
[2018-07-16] MEDS: THIAMINE HCL 100 MG TABLET (FP) PO SCH (22:27)
[2018-07-17] MEDS: chlordiazePOXIDE 5 MG CAPSULE PO SCH ×2 (06:20→10:29)
[2018-07-17] MEDS: NICOTINE 21 MG/24 HOURS TOPICAL PATCH TD SCH (10:29)
[2018-07-17] MEDS: PRENATAL VITAMINS W/ FOLIC ACID TABLET (FP) PO SCH (10:29)
[2018-07-17] MEDS: METHADONE HCL 5 MG TABLET (FOR DETOX USE ONLY) PO SCH (10:30)
--- NOTE | 2018-07-17 10:46 | PN ---
BHS Progress Note (SOAP) Subjective: s- pt states he is feeling anxious- usually takes vistaril, also he states he feels like he wants to leave now to get high-but also states he would like to go to rehab to prevent him from getting high O Vital Signs - 24 hr 07/16/18 07/16/18 07/17/18 18:20 22:31 00:30 Temperature 98.4 F 98.1 F Pulse Rate 84 63 Respiratory 18 18 18 Rate Blood Pressure 130/63 125/77 07/17/18 07/17/18 07/17/18 03:30 08:41 09:39 Temperature 97.9 F 98.4 F Pulse Rate 68 73 Respiratory 18 18 16 Rate Blood Pressure 136/80 124/66 Laboratory Tests 07/14/18 07/15/18 07/15/18 13:00 06:00 06:00 WBC 13.9 H RBC 4.25 Hgb 12.6 Hct 37.7 MCV 88.7 MCH 29.7 MCHC 33.4 RDW 12.8 Plt Count 211 D MPV 11.4 H Sodium 140 Potassium 3.8 Chloride 103 Carbon Dioxide 28 Anion Gap 9 BUN 23 H Creatinine 1.0 Creat Clearance w eGFR > 60 Random Glucose 104 Calcium 9.6 Total Bilirubin 0.7 AST 17 ALT 22 Alkaline Phosphatase 75 Total Protein 7.7 Albumin 4.2 RPR Titer HIV 1&2 Antibody Screen Negative HIV P24 Antigen Negative 07/15/18 06:00 WBC RBC Hgb Hct MCV MCH MCHC RDW Plt Count MPV Sodium Potassium Chloride Carbon Dioxide Anion Gap BUN Creatinine Creat Clearance w eGFR Random Glucose Calcium Total Bilirubin AST ALT Alkaline Phosphatase Total Protein Albumin RPR Titer Nonreactive HIV 1&2 Antibody Screen HIV P24 Antigen a/p: continue alcohol and heroin detox: discussed with pt suboxone and methadone as an option for OUD increased dose of vistaril to 50mg q 4h d/w pt that he needs to stay for 2 more days- unitl Thursday to go to rehab here- per Ms Silverman and counselor here.
[2018-07-17] MEDS: hydrOXYzine PAMOATE 50 MG CAPSULE (FP) PO PRN ×2 (11:45→18:07)
[2018-07-17] MEDS: hydrOXYzine PAMOATE 25 MG CAPSULE (FP) PO PRN (13:58)
[2018-07-17] MEDS: chlordiazePOXIDE HCL 10 MG CAPSULE PO SCH ×2 (17:39→22:49)
[2018-07-17] MEDS: THIAMINE HCL 100 MG TABLET (FP) PO SCH (22:49)
[2018-07-18] MEDS: chlordiazePOXIDE HCL 10 MG CAPSULE PO SCH ×2 (06:03→10:54)
[2018-07-18] MEDS ORDERED: METHADONE HCL 10 MG TABLET (FOR DETOX USE ONLY) PO SCH (10:00)
[2018-07-18] MEDS: hydrOXYzine PAMOATE 50 MG CAPSULE (FP) PO PRN ×3 (10:54→22:20)
[2018-07-18] MEDS: PRENATAL VITAMINS W/ FOLIC ACID TABLET (FP) PO SCH (11:31)
[2018-07-18] MEDS: NICOTINE 21 MG/24 HOURS TOPICAL PATCH TD SCH (11:31)
--- NOTE | 2018-07-18 11:41 | PN ---
[facility] Progress Note Note: PATIENT CONTINUES WITH DETOX REGIMEN. STATES FEELING ANXIOUS BUT BETTER. DENIES SHAKES, SWEATING AND N/V/D. Vital Signs Temperature 97.9 F 07/18/18 09:31 Pulse Rate 74 07/18/18 09:31 Respiratory Rate 19 07/18/18 09:31 Blood Pressure 110/52 L 07/18/18 09:31 O2 Sat by Pulse Oximetry (%) Laboratory Tests 07/14/18 07/15/18 07/15/18 13:00 06:00 06:00 WBC 13.9 H RBC 4.25 Hgb 12.6 Hct 37.7 MCV 88.7 MCH 29.7 MCHC 33.4 RDW 12.8 Plt Count 211 D MPV 11.4 H Sodium 140 Potassium 3.8 Chloride 103 Carbon Dioxide 28 Anion Gap 9 BUN 23 H Creatinine 1.0 Creat Clearance w eGFR > 60 Random Glucose 104 Calcium 9.6 Total Bilirubin 0.7 AST 17 ALT 22 Alkaline Phosphatase 75 Total Protein 7.7 Albumin 4.2 RPR Titer HIV 1&2 Antibody Screen Negative HIV P24 Antigen Negative 07/15/18 06:00 WBC RBC Hgb Hct MCV MCH MCHC RDW Plt Count MPV Sodium Potassium Chloride Carbon Dioxide Anion Gap BUN Creatinine Creat Clearance w eGFR Random Glucose Calcium Total Bilirubin AST ALT Alkaline Phosphatase Total Protein Albumin RPR Titer Nonreactive HIV 1&2 Antibody Screen HIV P24 Antigen PE: ALERT AND ORIENTED X 3 SKIN WARM AND DRY EXT FULL ROM, NO VISIBLE TREMORS AMB AD NICKI MILD ANXIETY A/P WITHDRAWAL SX CONTINUE DETOX FOR D/C IN AM
[2018-07-18] MEDS: THIAMINE HCL 100 MG TABLET (FP) PO SCH (22:20)
[2018-07-19] MEDS ORDERED: METHADONE HCL 5 MG TABLET (FOR DETOX USE ONLY) PO SCH (06:00)
[2018-07-19 09:50] VITALS: BP 106/64; PULSE 78; TEMP 97.5
--- NOTE | 2018-07-19 15:02 | DS ---
[facility] Detox Discharge Summary Admission Date: 07/14/18 Discharge Date: 07/19/18 - History Present History: Alcohol Dependence, Opioid Dependence, Sedative Dependence Additional Comments: PATIENT GOING TO [facility] ([place], [place]) FOR AFTERCARE. PATIENT WAS DISCHARGED FROM DETOX UNIT IN STABLE MEDICAL CONDITION. Pertinent Past History: Nicotine Dependence, Anxiety, Insomnia, History of Schizophrenia, Weight Loss. - Physical Exam Results Vital Signs: Vital Signs Temperature 97.5 F L 07/19/18 09:50 Pulse Rate 78 07/19/18 09:50 Respiratory Rate 18 07/19/18 09:50 Blood Pressure 106/64 07/19/18 09:50 O2 Sat by Pulse Oximetry (%) Pertinent Admission Physical Exam Findings: WITHDRAWAL SYMPTOMS. Laboratory Tests 07/14/18 07/15/18 07/15/18 13:00 06:00 06:00 WBC 13.9 H RBC 4.25 Hgb 12.6 Hct 37.7 MCV 88.7 MCH 29.7 MCHC 33.4 RDW 12.8 Plt Count 211 D MPV 11.4 H Sodium 140 Potassium 3.8 Chloride 103 Carbon Dioxide 28 Anion Gap 9 BUN 23 H Creatinine 1.0 Creat Clearance w eGFR > 60 Random Glucose 104 Calcium 9.6 Total Bilirubin 0.7 AST 17 ALT 22 Alkaline Phosphatase 75 Total Protein 7.7 Albumin 4.2 RPR Titer HIV 1&2 Antibody Screen Negative HIV P24 Antigen Negative 07/15/18 06:00 WBC RBC Hgb Hct MCV MCH MCHC RDW Plt Count MPV Sodium Potassium Chloride Carbon Dioxide Anion Gap BUN Creatinine Creat Clearance w eGFR Random Glucose Calcium Total Bilirubin AST ALT Alkaline Phosphatase Total Protein Albumin RPR Titer Nonreactive HIV 1&2 Antibody Screen HIV P24 Antigen LABS NOTED. - Treatment Hospital Course: Detox Protocol Followed, Detoxed Safely, Responded well, Discharged Condition Good, Rehab Referral Accepted Patient has Accepted a Rehab Referral to: [facility] ([place], [place]). - Medication Discharge Medications: Ambulatory Orders Benztropine Mesylate [Cogentin -] 1 mg PO BID 07/14/18 - Diagnosis (1) Weight loss Status: Acute (2) Alcohol dependence with uncomplicated withdrawal Status: Chronic (3) Nicotine dependence Status: Chronic Qualifiers: Nicotine product type: cigarettes Substance use status: uncomplicated Qualified Code(s): F17.210 - Nicotine dependence, cigarettes, uncomplicated (4) Opioid dependence with withdrawal Status: Chronic (5) Schizophrenia Status: Chronic Qualifiers: Schizophrenia type: unspecified Qualified Code(s): F20.9 - Schizophrenia, unspecified (6) Benzodiazepine dependence Status: Chronic - AMA Did Patient Leave Against Medical Advice: No
== END 2018-07-19 11:45 | disposition home or self-care (01) | DRG 897 ==
LOC: YASAS 11:22 → Y6N 13:13
PROVIDERS: ADMIT Surgery; ATTEND Surgery
PROC: HZ2ZZZZ Detoxification Services for Substance Abuse Treatment (ICD-10-PCS; principal; 2018-07-14)
DX: F11.23 Opioid dependence with withdrawal (principal); F10.230 Alcohol dependence with withdrawal, uncomplicated; F13.230 Sedative, hypnotic or anxiolytic dependence with withdrawal, uncomplicated; F17.210 Nicotine dependence, cigarettes, uncomplicated; F20.9 Schizophrenia, unspecified; F41.9 Anxiety disorder, unspecified
CPT/HCPCS: 36415; 80053; 85027; 86593; 87389

== ENCOUNTER 2018-09-16 10:08 | Inpatient (IN) | payer OTHER ==
--- NOTE | 2018-09-16 12:05 | HP ---
CIWA Score - Admission Criteria [facility] Guidelines: Admission for Medically Managed Detox: Requires at least one of the followin. CIWA greater than 12 2. Seizures within the past 24 hours 3. Delirium tremens within the past 24 hours 4. Hallucinations within the past 24 hours 5. Acute intervention needed for co occurring medical disorder 6. Acute intervention needed for co occurring psychiatric disorder 7. Severe withdrawal that cannot be handled at a lower level of care (continued vomiting, continued diarrhea, abnormal vital signs) requiring intravenous medication and/or fluids 8. Admission ROS BHS - HPI Chief Complaint: i am here for rehab from heroin,k2,alcohol Allergies/Adverse Reactions: Allergies Allergy/AdvReac Type Severity Reaction Status Date / Time ibuprofen [From Motrin] Allergy Severe Hives Verified 07/14/18 11:53 History of Present Illness: this 33 years old male with heroin,k2,alcohol dependence seeking rehab, completed detox [facility] to 09/16/18 multiple admissions in detox before nicotine dependence 1 pack/day,requested 4 mgs gum weight loss longest sobriety 2 years plan to go home after rehab history of bipolar disorder no med Exam Limitations: No Limitations - Ebola screening Have you traveled outside of the country in the last 21 days: No Have you had contact with anyone from an Ebola affected area: No Do you have a fever: No - Review of Systems Constitutional: No Symptoms Reported EENT: reports: No Symptoms Reported Respiratory: reports: No Symptoms reported Cardiac: reports: No Symptoms Reported GI: reports: No Symptoms Reported : reports: No Symptoms Reported Musculoskeletal: reports: No Symptoms Reported Integumentary: reports: No Symptoms Reported Neuro: reports: No Symptoms reported Endocrine: reports: No Symptoms Reported Hematology: reports: No Symptoms Reported Psychiatric: reports: No Sypmtoms Reported, Judgement Intact, Mood/Affect Appropiate, Orientated x3 Other Systems: Reviewed and Negative Patient History - Patient Medical History Hx Anemia: No Hx Asthma: No Hx Chronic Obstructive Pulmonary Disease (COPD): No Hx Cancer: No Hx Cardiac Disorders: No Hx Congestive Heart Failure: No Hx Hypertension: No Hx Hypercholesterolemia: No Hx Pacemaker: No HX Cerebrovascular Accident: No Hx Seizures: No Hx Dementia: No Hx Diabetes: No Hx Gastrointestinal Disorders: No Hx Liver Disease: No Hx Genitourinary Disorders: No Hx Sexually Transmitted Disorders: No Hx Renal Disease (ESRD): No Hx Thyroid Disease: No Hx Human Immunodeficiency Virus (HIV): No (last 2018 negative) Hx Hepatitis C: No Hx Depression: No Hx Suicide Attempt: No Hx Bipolar Disorder: Yes (no meds last 2 months ago) Hx Schizophrenia: No Other Medical History: no suicidal,no homicidal,multiple fx rt ribs,left wrist, rt jaw,fingers - Patient Surgical History Past Surgical History: No Hx Neurologic Surgery: No Hx Cataract Extraction: No Hx Cardiac Surgery: No Hx Lung Surgery: No Hx Breast Surgery: No Hx Breast Biopsy: No Hx Abdominal Surgery: No Hx Appendectomy: No Hx Cholecystectomy: No Hx Genitourinary Surgery: No Hx Section: No Hx Orthopedic Surgery: No Anesthesia Reaction: No - PPD History Previous Implant?: Yes Documented Results: Negative w/proof Implanted On Prior [facility] Admission?: Yes Date: 07/16/18 Results: 0 mm PPD to be Administered?: No - Smoking Cessation Smoking history: Current every day smoker Aproximately how many cigarettes per day: 20 Hx Chewing Tobacco Use: No Initiated information on smoking cessation: Yes 'Breaking Loose' booklet given: 09/16/18 - Substance & Tx. History Hx Alcohol Use: Yes Hx Substance Use: Yes Substance Use Type: Alcohol, Heroin Hx Substance Use Treatment: Yes ([facility] to 09/[facility]/18) - Substances abused Heroin Substance route: Inhalation Frequency: Daily Amount used: 3-7 bags Age of first use: 31 Date of last use: 09/07/18 K2/Spice Substance route: Smoking Frequency: Daily Amount used: 20 blunts Age of first use: 19 Date of last use: 09/07/18 Alcohol Substance route: Oral Frequency: Daily Amount used: 2 80oz of beer Age of first use: 14 Date of last use: 09/07/18 Family Disease History - Family Disease History Family Disease History: Other: Father (alcohol ) Admission Physical Exam BHS - Vital Signs Vital Signs: Vital Signs - 24 hr 09/16/18 10:57 Temperature 98.7 F Pulse Rate 92 H Respiratory 18 Rate Blood Pressure 119/76 - Physical General Appearance: Yes: Within Normal Limits HEENTM: Yes: Normal ENT Inspection, KYMBERLY, Pharynx Normal Respiratory: Yes: Lungs Clear, Normal Breath Sounds, No Respiratory Distress Neck: Yes: Within Normal Limits, Supple, Trachea in good position Breast: Yes: Within Normal Limits Cardiology: Yes: Within Normal Limits, Regular Rhythm, Regular Rate, S1, S2 Abdominal: Yes: Within Normal Limits, Normal Bowel Sounds, Non Tender, Flat, Soft Genitourinary: Yes: Within Normal Limits Back: Yes: Within Normal Limits Musculoskeletal: Yes: Within Normal Limits Extremities: Yes: Within Normal Limits Neurological: Yes: director risk II-XII NML intact, Fully Oriented, Alert, Motor Strength 5/5 Integumentary: Yes: Within Normal Limits Lymphatic: Yes: Within Normal Limits - Diagnostic (1) Opioid dependence Current Visit: Yes Status: Acute (2) Alcohol dependence Current Visit: Yes Status: Acute (3) Weight loss Current Visit: No Status: Acute (4) Nicotine dependence Current Visit: No Status: Chronic Qualifiers: Nicotine product type: cigarettes Substance use status: uncomplicated Qualified Code(s): F17.210 - Nicotine dependence, cigarettes, uncomplicated (5) Schizophrenia Current Visit: No Status: Chronic Qualifiers: Schizophrenia type: unspecified Qualified Code(s): F20.9 - Schizophrenia, unspecified Cleared for Admission BHS - Detox or Rehab Claeared for Rehab Admission: Yes Breathalyzer - Breathalyzer Breathalyzer: 0 Urine Drug Screen - Test Device Lot number: [id number] Expiration date: 08/29/19 - Control Is test valid?: Yes - Results Drug screen NEGATIVE: No Urine drug screen results: MTD-Methadone, BZO-Benzodiazepines Inpatient Rehab Admission - Rehab Decision to Admit Inpatient rehab admission?: Yes - Initial Determination Are CD services needed?: Yes Free of communicable disease: Yes Not in need of hospitalization: Yes - Rehab Admission Criteria Previous failed treatment: Yes Poor recovery environment: Yes Comorbidities: Yes Lacks judgement: No Patient is meeting Inpatient Rehab admission criteria:: Yes
[2018-09-16] MEDS ORDERED: hydrOXYzine PAMOATE 50 MG CAPSULE (FP) PO PRN (12:17)
[2018-09-16] MEDS ORDERED: P-EPHED 60MG/TRIPROLIDI 2.5MG TABLET PO PRN (12:17)
[2018-09-16] MEDS ORDERED: MAGNESIUM CITRATE 300 ML BOTTLE PO PRN (12:17)
[2018-09-16] MEDS ORDERED: MAGNESIUM HYDROX 2400MG/30ML ORAL SUSPENSION 30 ML CUP PO PRN (12:17)
[2018-09-16] MEDS ORDERED: ACETAMINOPHEN 325 MG TABLET (FP) PO PRN (12:17)
[2018-09-16] MEDS ORDERED: MAG HYDROX/AL HYDROX/SIMETH 30 ML UNIT-DOSE CUP PO PRN (12:17)
[2018-09-16] MEDS ORDERED: MENTHOL/PHENOL 1 EACH UD MM PRN (12:17)
[2018-09-16] MEDS ORDERED: guaiFENesin 200 MG/10 ML 10 ML UNIT-DOSE CUPS PO PRN (12:17)
[2018-09-16] MEDS ORDERED: LOPERAMIDE HCL 2 MG CAPSULE PO PRN (12:17)
[2018-09-16 14:37] LABS: HEMATOCRIT 45.5 % (35.4-49); HEMOGLOBIN 15.2 GM/dL (11.7-16.9); MCH 29.6 pg (25.7-33.7); MCHC 33.3 g/dl (32.0-35.9); MEAN CELL VOLUME 88.9 fl (80-96); MEAN PLT VOLUME 11.4 fl (7.5-11.1); PLATELET COUNT 202 K/MM3 (134-434); RBC 5.12 M/mm3 (4.00-5.60); RDW 13.1 % (11.9-15.9); WHITE BLOOD COUNT 10.8 K/mm3 (4.0-10.0)
[2018-09-16 14:56] LABS: ALBUMIN 4.3 g/dl (3.4-5.0); ALK PHOS 90 U/L (45-117); ANION GAP 6 MMOL/L (8-16); BILIRUBIN,TOTAL 0.8 mg/dL (0.2-1); BLOOD UREA NITROGEN 13 mg/dL (7-18); CHLORIDE 106 mmol/L (98-107); CO2 28 mmol/L (21-32); CREATININE 0.9 mg/dL (0.55-1.3); GLUCOSE,RANDOM 78 mg/dL (74-106); POTASSIUM 4.5 mmol/L (3.5-5.1); SGOT/AST 12 U/L (15-37); SGPT/ALT 17 U/L (13-61); SODIUM 139 mmol/L (136-145)
[2018-09-16 17:13] LABS: PH,URINE 5.5 (5.0-8.0); URINE APPEARANCE CLEAR; URINE BILIRUBIN NEGATIVE (NEGATIVE); URINE COLOR YELLOW; URINE GLUCOSE (UA) NEGATIVE (NEGATIVE); URINE KETONE NEGATIVE (NEGATIVE); URINE LEUK ESTERASE NEGATIVE (NEGATIVE); URINE NITRITE NEGATIVE (NEGATIVE); URINE PROTEIN NEGATIVE (NEGATIVE); URINE UROBILINOGEN 0.2 mg/dL (0.2-1.0)
[2018-09-16] MEDS: THIAMINE HCL 100 MG TABLET (FP) PO SCH (21:37)
[2018-09-16] MEDS: NICOTINE POLACRILEX 4 MG GUM BUC PRN (21:37)
[2018-09-16] MEDS ORDERED: MELATONIN 5 MG TABLETS PO PRN (22:00)
[2018-09-17] MEDS: PRENATAL VITAMINS W/ FOLIC ACID TABLET (FP) PO SCH (10:25)
--- NOTE | 2018-09-17 11:58 | CONSULT ---
[facility] Psychiatric Consult - Data Date of interview: 09/17/18 Admission source: [facility] Identifying data: Patient is a 33 year old single male, without children, unemployed, domiciled, domiciled and is supported by [facility]. This is one of multiple admissions for patient. Patient admitted to for alcohol and opioid dependence. Substance Abuse History: Smoking Cessation. Smoking history: Current every day smoker. Aproximately how many cigarettes per day: 20. Hx Chewing Tobacco Use: No. Initiated information on smoking cessation: Yes. 'Breaking Loose' booklet given: 09/16/18. - Substance & Tx. History. Hx Alcohol Use: Yes. Hx Substance Use: Yes. Substance Use Type: Alcohol, Heroin. Hx Substance Use Treatment: Yes ([facility] to 09/16/18). - Substances abused. Heroin. Substance route: Inhalation. Frequency: Daily. Amount used: 3-7 bags. Age of first use: 31. Date of last use: 09/07/18. K2/Spice. Substance route: Smoking. Frequency: Daily. Amount used: 20 blunts. Age of first use: 19. Date of last use: 09/07/18. Alcohol. Substance route: Oral. Frequency: Daily. Amount used: 2 80oz of beer. Age of first use: 14. Date of last use: 09/07/18 Medical History: denies. Psychiatric History: Patient reluctant to provide a cohesive psychiatric history. States he was hospitalized at [facility] 4 month ago after after an arugment with his mother. When asked which medication he takes, patient responded, " I dont' take medications." External records reviewed with patient and noted prescription of prolixen 10mg (07/08/18 #30 tablets), cogentin 2mg (08/12/18 #30 tablets), Mirtazapine 30mg (08/13/18 #30 tablets). Patient than stated, " Yea i took that. but i don't take it anymore." Patient admitted to receiving prolixen decanoate 2 months ago but reported to lyric writer, " I don't need another injection and i dont take medications. I'm fine." Patient is coherent, alert and oriented but mildly suspicious. Patient is able to answer questions appropriately and is cooperative througout asssessment. He denies psychotic symptoms but as per history it is is suspected that patient has a history of schizophrenia. Physical/Sexual Abuse/Trauma History: denies. Mental Status Exam - Mental Status Exam Alert and Oriented to: Time, Place, Person Cognitive Function: Good Patient Appearance: Well Groomed Mood: Sad, Suspicious, Withdrawn Affect: Mood Congruent Patient Behavior: Cooperative Speech Pattern: Clear Voice Loudness: Normal Thought Process: Goal Oriented Thought Disorder: Not Present Hallucinations: Denies Suicidal Ideation: Denies Homicidal Ideation: Denies Insight/Judgement: Poor Sleep: Fair Appetite: Fair Muscle strength/Tone: Normal Gait/Station: Normal Psychiatric Findings - Problem List ([place] 1, 2,3) (1) Alcohol dependence Current Visit: Yes Status: Acute (2) Opioid dependence Current Visit: Yes Status: Acute (3) Nicotine dependence Current Visit: No Status: Chronic Qualifiers: Nicotine product type: cigarettes Substance use status: uncomplicated Qualified Code(s): F17.210 - Nicotine dependence, cigarettes, uncomplicated (4) Schizophrenia Current Visit: No Status: Chronic Qualifiers: Schizophrenia type: unspecified Qualified Code(s): F20.9 - Schizophrenia, unspecified - Initial Treatment Plan Initial Treatment Plan: Psychoeducation provided. Rehab in progress. Patient refusing to accept psychotropic medications. Patient informed of the risk of endorsing paranoid, auditory, visual hallucinations when refusing to accept psychotropic medications. Observation.
[2018-09-17] MEDS: THIAMINE HCL 100 MG TABLET (FP) PO SCH (21:30)
[2018-09-18] MEDS: PRENATAL VITAMINS W/ FOLIC ACID TABLET (FP) PO SCH (10:26)
[2018-09-18] MEDS: THIAMINE HCL 100 MG TABLET (FP) PO SCH (22:42)
[2018-09-19] MEDS: NICOTINE POLACRILEX 4 MG GUM BUC PRN (06:39)
[2018-09-19] MEDS ORDERED: HYDROCORTISONE 0.5% TOPICAL OINTMENT TUBE TP PRN (06:52)
[2018-09-19] MEDS: PRENATAL VITAMINS W/ FOLIC ACID TABLET (FP) PO SCH (09:14)
[2018-09-19] MEDS: THIAMINE HCL 100 MG TABLET (FP) PO SCH (22:33)
[2018-09-20 06:41] VITALS: TEMP 98.2
[2018-09-20] MEDS: PRENATAL VITAMINS W/ FOLIC ACID TABLET (FP) PO SCH (10:53)
[2018-09-20] MEDS: THIAMINE HCL 100 MG TABLET (FP) PO SCH (21:51)
[2018-09-21 06:36] VITALS: BP 123/85; PULSE 83
[2018-09-21] MEDS: PRENATAL VITAMINS W/ FOLIC ACID TABLET (FP) PO SCH (11:15)
--- NOTE | 2018-09-21 12:39 | PN ---
[facility] Progress Note Note: PT DECLINED TO CONTINUE WITH REHAB STATING HE WANTS TO LEAVE [place] HE HAD AN ARGUEMENT WITH HIS MOTHER OVER THE PHONE AND MOTHER DOES NOT WANT TO HELP HIM FIND ANOTHER APARTMENT; WANTS TO LEAVE BECAUSE 'I WANT TO SMOKE, I FEEL CLUSTERED IN HERE. I CAN'T BREATH, THERE'S NO AIR. I'M GOOD,I'M DONE WITH DRUGS ". ALL EFFORTS BY STAFF TO INTERVENE WITH PATIENT'S DECISION WAS UNSUCCESSFUL. PT IS REFERRED BACK TO [facility] FOR CD AFTERCARE. PT REPORTS HE HAS PCP WITH [facility] [place], [place] FOR MEDICAL MANAGEMENT. PT PT IS ALERT O X 3. DENIES S/H/I. Home Medications Medication Instructions Recorded Naloxone HCl [Narcan] 4 mg NS ONCE #1 spray 09/21/18 Vital Signs 09/21/18 06:36 Temperature 98.2 F Pulse Rate 83 Respiratory 18 Rate Blood Pressure 123/85 Laboratory Tests 09/16/18 09/16/18 09/16/18 12:15 12:15 12:15 WBC 10.8 H RBC 5.12 Hgb 15.2 Hct 45.5 D MCV 88.9 MCH 29.6 MCHC 33.3 RDW 13.1 Plt Count 202 MPV 11.4 H Sodium 139 Potassium 4.5 Chloride 106 Carbon Dioxide 28 Anion Gap 6 L BUN 13 Creatinine 0.9 Creat Clearance w eGFR 96.60 Random Glucose 78 Calcium 10.0 Total Bilirubin 0.8 AST 12 L ALT 17 Alkaline Phosphatase 90 Total Protein 8.0 Albumin 4.3 Urine Color Urine Appearance Urine pH Ur Specific [place] Urine Protein Urine Glucose (UA) Urine Ketones Urine Blood Urine Nitrite Urine Bilirubin Urine Urobilinogen Ur Leukocyte Esterase RPR Titer Nonreactive 09/16/18 12:54 WBC RBC Hgb Hct MCV MCH MCHC RDW Plt Count MPV Sodium Potassium Chloride Carbon Dioxide Anion Gap BUN Creatinine Creat Clearance w eGFR Random Glucose Calcium Total Bilirubin AST ALT Alkaline Phosphatase Total Protein Albumin Urine Color Yellow Urine Appearance Clear Urine pH 5.5 Ur Specific [place] 1.018 Urine Protein Negative Urine Glucose (UA) Negative Urine Ketones Negative Urine Blood Negative Urine Nitrite Negative Urine Bilirubin Negative Urine Urobilinogen 0.2 Ur Leukocyte Esterase Negative RPR Titer NAD PLAN:PT SIGNED OUT AMA FOLLOW UP WITH CD AFTERCARE AND MEDICAL MANAGEMENT RECOMMENDATIONS ABOVE.
== END 2018-09-21 11:00 | disposition left against medical advice (07) | DRG 894 ==
LOC: YASAS 10:08 → Y5N 12:14
PROVIDERS: ADMIT Neuromusculoskeletal Medicine & OMM; ATTEND Neuromusculoskeletal Medicine & OMM
PROC: HZ42ZZZ Group Counseling for Substance Abuse Treatment, Cognitive-Behavioral (ICD-10-PCS; principal; 2018-09-16)
DX: F11.20 Opioid dependence, uncomplicated (principal); F10.20 Alcohol dependence, uncomplicated; F17.210 Nicotine dependence, cigarettes, uncomplicated; F20.9 Schizophrenia, unspecified; R63.4 Abnormal weight loss
CPT/HCPCS: 36415; 80053; 81003; 85027; 86593

== ENCOUNTER 2019-01-03 12:35 | Inpatient (IN) | payer OTHER | END 2019-01-08 17:05 | disposition left against medical advice (07) | LOC: YASAS 12:35 → Y5N 17:19 ==

== ENCOUNTER 2020-07-29 12:42 | Inpatient (IN) | payer OTHER ==
[2020-07-29] MEDS ORDERED: ONDANSETRON *ODT* 4 MG TABLET SL PRN (16:13)
[2020-07-29] MEDS ORDERED: MENTHOL/PHENOL 1 EACH UD MM PRN (16:13)
[2020-07-29] MEDS ORDERED: ACETAMINOPHEN 325 MG TABLET (FP) PO PRN ×2 (16:13)
[2020-07-29] MEDS ORDERED: METHOCARBAMOL 500 MG TABLET PO PRN (16:13)
[2020-07-29] MEDS ORDERED: chlordiazePOXIDE HCL 25 MG CAPSULE PO PRN (16:13)
[2020-07-29] MEDS ORDERED: MAGNESIUM HYDROX 2400MG/30ML ORAL SUSPENSION 30 ML CUP PO PRN (16:13)
[2020-07-29] MEDS ORDERED: IBUPROFEN 400 MG TABLET (FP) PO PRN (16:13)
[2020-07-29] MEDS ORDERED: MAGNESIUM CITRATE 300 ML BOTTLE PO PRN (16:13)
[2020-07-29] MEDS ORDERED: BISMUTH SUBSALICYLATE 524 MG/30 ML UD PO PRN (16:13)
[2020-07-29] MEDS ORDERED: NICOTINE POLACRILEX 2 MG GUM BUC PRN (16:13)
[2020-07-29] MEDS ORDERED: MAG HYDROX/AL HYDROX/SIMETH 30 ML UNIT-DOSE CUP PO PRN (16:13)
[2020-07-29 16:27] VITALS: BMI 24.1
[2020-07-29] MEDS: hydrOXYzine PAMOATE 25 MG CAPSULE (FP) PO SCH ×2 (19:06→22:49)
[2020-07-29] MEDS ORDERED: THIAMINE HCL 100 MG TABLET (FP) PO SCH (22:00)
[2020-07-29] MEDS ORDERED: MELATONIN 5 MG TABLETS PO SCH (22:00)
[2020-07-29] MEDS: chlordiazePOXIDE HCL 25 MG CAPSULE PO SCH (22:49)
[2020-07-30] MEDS: chlordiazePOXIDE HCL 25 MG CAPSULE PO SCH ×2 (05:57→10:13)
[2020-07-30] MEDS: hydrOXYzine PAMOATE 25 MG CAPSULE (FP) PO SCH ×2 (07:04→10:11)
[2020-07-30] MEDS ORDERED: PRENATAL VITAMINS W/ FOLIC ACID TABLET (FP) PO SCH (10:00)
[2020-07-30 12:03] LABS: HEMATOCRIT 42.2 % (35.4-49); HEMOGLOBIN 13.8 GM/dL (11.7-16.9); MCH 29.3 pg (25.7-33.7); MCHC 32.7 g/dl (32.0-35.9); MEAN CELL VOLUME 89.6 fl (80-96); MEAN PLT VOLUME 11.3 fl (7.5-11.1); PLATELET COUNT 227 K/MM3 (134-434); RBC 4.71 M/mm3 (4.00-5.60); RDW 12.9 % (11.9-15.9); WHITE BLOOD COUNT 13.1 K/mm3 (4.0-10.0)
[2020-07-30 12:15] LABS: POTASSIUM 4.3 mmol/L (3.5-5.1)
[2020-07-30 12:36] LABS: ALBUMIN 3.2 g/dl (3.4-5.0)
[2020-07-30 12:37] LABS: BLOOD UREA NITROGEN 14.9 mg/dL (7-18)
[2020-07-30 12:40] LABS: BILIRUBIN,TOTAL 0.3 mg/dL (0.2-1); CREATININE 1.1 mg/dL (0.55-1.3)
[2020-07-30 12:41] LABS: TOT PROT 6.2 g/dl (6.4-8.2)
[2020-07-30 12:46] VITALS: BP 120/69; PULSE 64; TEMP 98.3
[2020-07-31] MEDS ORDERED: chlordiazePOXIDE HCL 25 MG CAPSULE PO SCH (05:00)
[2020-08-01] MEDS ORDERED: chlordiazePOXIDE HCL 10 MG CAPSULE PO PRN
[2020-08-01] MEDS ORDERED: chlordiazePOXIDE HCL 10 MG CAPSULE PO SCH (05:00)
[2020-08-02] MEDS ORDERED: chlordiazePOXIDE HCL 10 MG CAPSULE PO SCH (05:00)
[2020-08-03] MEDS ORDERED: chlordiazePOXIDE HCL 10 MG CAPSULE PO ONE (05:00)
== END 2020-07-30 15:15 | disposition left against medical advice (07) | DRG 894 ==
LOC: YASAS 12:42 → Y3N 18:09
PROVIDERS: ADMIT Allergy & Immunology; ATTEND Allergy & Immunology
PROC: HZ2ZZZZ Detoxification Services for Substance Abuse Treatment (ICD-10-PCS; principal; 2020-07-29)
DX: F11.23 Opioid dependence with withdrawal (principal); F14.20 Cocaine dependence, uncomplicated; F19.20 Other psychoactive substance dependence, uncomplicated; F20.0 Paranoid schizophrenia; F10.230 Alcohol dependence with withdrawal, uncomplicated; F12.20 Cannabis dependence, uncomplicated; F17.210 Nicotine dependence, cigarettes, uncomplicated; Z88.6 Allergy status to analgesic agent
CPT/HCPCS: 36415; 80053; 85027; 86780; 93005; 93010; C9803; U0003

== ENCOUNTER 2020-11-21 08:17 | Inpatient (IN) | payer OTHER ==
[2020-11-21 09:08] VITALS: BMI 25.2
[2020-11-21] MEDS ORDERED: P-EPHED 60MG/TRIPROLIDI 2.5MG TABLET PO PRN (18:52)
[2020-11-21] MEDS ORDERED: ACETAMINOPHEN 325 MG TABLET (FP) PO PRN (18:52)
[2020-11-21] MEDS ORDERED: MAG HYDROX/AL HYDROX/SIMETH 30 ML UNIT-DOSE CUP PO PRN (18:52)
[2020-11-21] MEDS ORDERED: MAGNESIUM CITRATE 300 ML BOTTLE PO PRN (18:52)
[2020-11-21] MEDS ORDERED: NICOTINE POLACRILEX 2 MG GUM BC PRN (18:52)
[2020-11-21] MEDS ORDERED: guaiFENesin 200 MG/10 ML 10 ML UNIT-DOSE CUPS PO PRN (18:52)
[2020-11-21] MEDS ORDERED: MAGNESIUM HYDROX 2400MG/30ML ORAL SUSPENSION 30 ML CUP PO PRN (18:52)
[2020-11-21] MEDS ORDERED: LOPERAMIDE HCL 2 MG CAPSULE PO PRN (18:52)
[2020-11-21] MEDS ORDERED: hydrOXYzine PAMOATE 25 MG CAPSULE (FP) PO PRN (18:52)
[2020-11-21] MEDS ORDERED: MELATONIN 5 MG TABLETS PO SCH (22:00)
[2020-11-21] MEDS ORDERED: THIAMINE HCL 100 MG TABLET (FP) PO SCH (22:00)
[2020-11-22 06:12] VITALS: BP 129/84; PULSE 107; TEMP 97.8
[2020-11-22] MEDS ORDERED: PRENATAL VITAMINS W/ FOLIC ACID TABLET (FP) PO SCH (10:00)
[2020-11-22] MEDS ORDERED: NICOTINE 21 MG/24 HOURS TOPICAL PATCH TD SCH (10:00)
[2020-11-22 11:12] LABS: HEMATOCRIT 42.8 % (35.4-49); HEMOGLOBIN 13.9 GM/dL (11.7-16.9); MCH 29.2 pg (25.7-33.7); MCHC 32.4 g/dl (32.0-35.9); MEAN CELL VOLUME 89.9 fl (80-96); MEAN PLT VOLUME 11.4 fl (7.5-11.1); PLATELET COUNT 200 10^3/uL (134-434); RBC 4.76 M/mm3 (4.00-5.60); RDW 12.3 % (11.9-15.9); WHITE BLOOD COUNT 9.8 K/mm3 (4.0-10.0)
[2020-11-22 11:17] LABS: ALBUMIN 3.6 g/dl (3.4-5.0); BLOOD UREA NITROGEN 20.5 mg/dL (7-18); CALCIUM 8.8 mg/dL (8.5-10.1)
[2020-11-22 11:21] LABS: CREATININE 1.3 mg/dL (0.55-1.3)
[2020-11-22 11:43] LABS: BILIRUBIN,TOTAL 0.4 mg/dL (0.2-1)
[2020-11-22] MEDS ORDERED: QUEtiapine FUMARATE 200 MG TABLET PO SCH (22:00)
[2020-11-23] MEDS ORDERED: QUEtiapine FUMARATE 100 MG TABLET (FP) PO SCH (10:00)
== END 2020-11-22 19:20 | disposition left against medical advice (07) | DRG 894 ==
LOC: YASAS 08:17 → Y5N 17:38
PROVIDERS: ADMIT Allergy & Immunology; ATTEND Allergy & Immunology
PROC: HZ42ZZZ Group Counseling for Substance Abuse Treatment, Cognitive-Behavioral (ICD-10-PCS; principal; 2020-11-21)
DX: F10.20 Alcohol dependence, uncomplicated (principal); F14.20 Cocaine dependence, uncomplicated; F20.0 Paranoid schizophrenia; F11.10 Opioid abuse, uncomplicated; F17.210 Nicotine dependence, cigarettes, uncomplicated; M54.5 Low back pain; G89.29 Other chronic pain; Z59.0 Homelessness
CPT/HCPCS: 36415; 80053; 85027; 86780; C9803; U0003; U0005

== ENCOUNTER 2021-06-01 17:27 | Inpatient (IN) | payer OTHER ==
[2021-06-01 18:13] VITALS: BMI 23.6
[2021-06-01] MEDS ORDERED: METHOCARBAMOL 500 MG TABLET PO PRN (18:32)
[2021-06-01] MEDS ORDERED: NICOTINE POLACRILEX 2 MG GUM BUC PRN (18:32)
[2021-06-01] MEDS ORDERED: ACETAMINOPHEN 325 MG TABLET (FP) PO PRN ×2 (18:32)
[2021-06-01] MEDS ORDERED: MENTHOL/PHENOL 1 EACH UD MM PRN (18:32)
[2021-06-01] MEDS ORDERED: MAG HYDROX/AL HYDROX/SIMETH 30 ML UNIT-DOSE CUP PO PRN (18:32)
[2021-06-01] MEDS ORDERED: ONDANSETRON *ODT* 4 MG TABLET SL PRN (18:32)
[2021-06-01] MEDS ORDERED: MAGNESIUM CITRATE 300 ML BOTTLE PO PRN (18:32)
[2021-06-01] MEDS ORDERED: MAGNESIUM HYDROX 2400MG/30ML ORAL SUSPENSION 30 ML CUP PO PRN (18:32)
[2021-06-01] MEDS: hydrOXYzine PAMOATE 25 MG CAPSULE (FP) PO PRN (23:08)
[2021-06-01] MEDS: MELATONIN 5 MG TABLETS PO SCH (23:08)
[2021-06-01] MEDS: THIAMINE HCL 100 MG TABLET (FP) PO SCH (23:09)
[2021-06-02] MEDS: PRENATAL VITAMINS W/ FOLIC ACID TABLET (FP) PO SCH (10:31)
[2021-06-02] MEDS: THIAMINE HCL 100 MG TABLET (FP) PO SCH (21:15)
[2021-06-02] MEDS: MELATONIN 5 MG TABLETS PO SCH (21:15)
[2021-06-02] MEDS: hydrOXYzine PAMOATE 25 MG CAPSULE (FP) PO PRN (21:15)
[2021-06-03 08:44] VITALS: BP 106/62; PULSE 91; TEMP 97.1
[2021-06-03] MEDS: PRENATAL VITAMINS W/ FOLIC ACID TABLET (FP) PO SCH (10:12)
[2021-06-03 12:29] LABS: HEMATOCRIT 45.9 % (35.4-49); HEMOGLOBIN 14.6 GM/dL (11.7-16.9); MCH 28.5 pg (25.7-33.7); MCHC 31.9 g/dl (32.0-35.9); MEAN CELL VOLUME 89.5 fl (80-96); MEAN PLT VOLUME 10.8 fl (7.5-11.1); PLATELET COUNT 284 10^3/uL (134-434); RBC 5.13 M/mm3 (4.00-5.60); WHITE BLOOD COUNT 8.2 K/mm3 (4.0-10.0)
[2021-06-03 13:06] LABS: ALBUMIN 3.4 g/dl (3.4-5.0); CALCIUM 9.5 mg/dL (8.5-10.1)
[2021-06-03 13:08] LABS: CREATININE 1.1 mg/dL (0.55-1.3)
[2021-06-03 13:10] LABS: BILIRUBIN,TOTAL 0.7 mg/dL (0.2-1)
== END 2021-06-03 12:20 | disposition home or self-care (01) | DRG 897 ==
LOC: YASAS 17:27 → Y3N 21:34 → UNDOADMIN 21:34
PROVIDERS: ADMIT Allergy & Immunology; ATTEND Allergy & Immunology
PROC: HZ2ZZZZ Detoxification Services for Substance Abuse Treatment (ICD-10-PCS; principal; 2021-06-01)
DX: F10.20 Alcohol dependence, uncomplicated (principal); F14.20 Cocaine dependence, uncomplicated; F11.10 Opioid abuse, uncomplicated; F17.210 Nicotine dependence, cigarettes, uncomplicated; F25.9 Schizoaffective disorder, unspecified; F31.9 Bipolar disorder, unspecified; F41.9 Anxiety disorder, unspecified; M54.50 Low back pain, unspecified; G89.29 Other chronic pain
CPT/HCPCS: 36415; 80053; 85027; 86780; C9803; U0003; U0005

== ENCOUNTER 2024-02-15 13:33 | Inpatient (IN) | payer OTHER ==
[2024-02-15 14:16] VITALS: BMI 28.2
[2024-02-15] MEDS ORDERED: LOPERAMIDE HCL 2 MG CAPSULE PO PRN (16:43)
[2024-02-15] MEDS ORDERED: BENZONATATE 200 MG CAPSULE PO PRN (16:43)
[2024-02-15] MEDS ORDERED: BISMUTH SUBSALICYLATE 524 MG/30 ML PO PRN (16:43)
[2024-02-15] MEDS ORDERED: guaiFENesin 600 MG TABLET.ER (FP) PO PRN (16:43)
[2024-02-15] MEDS ORDERED: IBUPROFEN 400 MG TABLET (FP) PO PRN (16:43)
[2024-02-15] MEDS ORDERED: POLYETHYLENE GLYCOL (HEALTHYLAX) 3350 17 GM PACKET PO PRN (16:43)
[2024-02-15] MEDS ORDERED: MAGNESIUM HYDROX 2400MG/30ML ORAL SUSPENSION 30 ML CUP PO PRN (16:43)
[2024-02-15] MEDS ORDERED: BENZOCAINE/MENTHOL (CHLORASEPTIC ) LOZENGE MM PRN (16:43)
[2024-02-15] MEDS ORDERED: NALOXONE HCL 0.4 MG/ML VIAL IM PRN (16:43)
[2024-02-15] MEDS ORDERED: NALOXONE (NARCAN) HCL 4 MG/0.1 ML SPRAY NS PRN (16:43)
[2024-02-15] MEDS ORDERED: MAG HYDROX/AL HYDROX/SIMETH 30 ML UNIT-DOSE CUP PO PRN (16:43)
[2024-02-15] MEDS ORDERED: DICYCLOMINE HCL 10 MG CAPSULE PO PRN (16:43)
[2024-02-15] MEDS ORDERED: METHOCARBAMOL 500 MG TABLET PO PRN (16:43)
[2024-02-15] MEDS: PRENATAL VITAMINS W/ FOLIC ACID TABLET (FP) PO SCH (18:52)
[2024-02-15] MEDS: NICOTINE 21 MG/24 HOURS TOPICAL PATCH TD SCH (18:52)
[2024-02-15] MEDS: IBUPROFEN 600 MG TABLET (FP) PO PRN (19:17)
[2024-02-15] MEDS: propRANOLol HCL 10 MG TABLET PO ONE (19:17)
[2024-02-15] MEDS: ACETAMINOPHEN 325 MG TABLET (FP) PO PRN (22:14)
[2024-02-15] MEDS: MELATONIN 5 MG TABLETS PO SCH (22:14)
[2024-02-15] MEDS: THIAMINE 100 MG TABLET PO SCH (22:14)
[2024-02-16] MEDS ORDERED: chlordiazePOXIDE HCL 25 MG CAPSULE PO PRN (08:24)
[2024-02-16] MEDS: chlordiazePOXIDE HCL 25 MG CAPSULE PO ONE (09:17)
[2024-02-16] MEDS: chlordiazePOXIDE HCL 25 MG CAPSULE PO SCH (10:19)
[2024-02-16] MEDS: ACAMPROSATE CALCIUM 333 MG TABLET.DR PO SCH (13:54)
[2024-02-16 14:29] LABS: HEMATOCRIT 41.4 % (35.4-49); HEMOGLOBIN 13.5 GM/dL (11.7-16.9); MCH 28.6 pg (25.7-33.7); MCHC 32.7 g/dl (32.0-35.9); MEAN CELL VOLUME 87.4 fl (80-96); MEAN PLT VOLUME 10.8 fl (7.5-11.1); PLATELET COUNT 238 10^3/uL (134-434); RBC 4.73 M/mm3 (4.00-5.60); RDW 13.1 % (11.9-15.9); WHITE BLOOD COUNT 8.9 K/mm3 (4.0-10.0)
[2024-02-16 14:43] LABS: POTASSIUM 4.2 mmol/L (3.5-5.1)
[2024-02-16 15:04] LABS: ALBUMIN 3.6 g/dl (3.4-5.0); BLOOD UREA NITROGEN 16.8 mg/dL (7-18); CALCIUM 9.3 mg/dL (8.5-10.1)
[2024-02-16 15:16] LABS: BILIRUBIN,TOTAL 0.7 mg/dL (0.2-1)
[2024-02-18] MEDS: chlordiazePOXIDE HCL 25 MG CAPSULE PO SCH (05:36)
[2024-02-19] MEDS ORDERED: chlordiazePOXIDE HCL 10 MG CAPSULE PO PRN
[2024-02-19] MEDS: chlordiazePOXIDE HCL 10 MG CAPSULE PO SCH (05:34)
[2024-02-19] MEDS: hydrOXYzine PAMOATE 25 MG CAPSULE (FP) PO PRN (17:19)
[2024-02-19] MEDS: QUEtiapine FUMARATE 200 MG TABLET PO SCH (23:06)
[2024-02-20] MEDS: ONDANSETRON *ODT* 4 MG TABLET SL PRN (02:29)
[2024-02-20] MEDS: chlordiazePOXIDE HCL 10 MG CAPSULE PO SCH (05:42)
[2024-02-20] MEDS: QUEtiapine FUMARATE 200 MG TABLET PO SCH (10:13)
[2024-02-20] MEDS: fluPHENAZine DECANOATE 125 MG/5ML VIAL IM ONE (12:58)
[2024-02-20 17:15] VITALS: RESP 18
[2024-02-21] MEDS: chlordiazePOXIDE HCL 10 MG CAPSULE PO ONE (05:46)
[2024-02-21 09:16] VITALS: BP 112/72; PULSE 110; TEMP 97.8
[2024-02-21] MEDS ORDERED: fluPHENAZine DECANOATE 125 MG/5ML VIAL IM ONE (10:00)
== END 2024-02-21 09:41 | disposition home or self-care (01) | DRG 897 ==
LOC: YASAS 13:33 → Y3N 18:42
PROVIDERS: ADMIT Allergy & Immunology; ATTEND Surgery
PROC: HZ2ZZZZ Detoxification Services for Substance Abuse Treatment (ICD-10-PCS; principal; 2024-02-15)
DX: F10.230 Alcohol dependence with withdrawal, uncomplicated (principal); F14.20 Cocaine dependence, uncomplicated; F20.0 Paranoid schizophrenia; F17.210 Nicotine dependence, cigarettes, uncomplicated; F41.9 Anxiety disorder, unspecified
CPT/HCPCS: 36415; 80053; 80305; 80307; 85027; 86780; 93005; 93010; Q0162

== ENCOUNTER 2024-03-11 12:36 | Inpatient (IN) | payer OTHER ==
[2024-03-11 14:29] VITALS: BMI 26.9
[2024-03-11] MEDS ORDERED: LOPERAMIDE HCL 2 MG CAPSULE PO PRN (15:22)
[2024-03-11] MEDS ORDERED: BENZONATATE 200 MG CAPSULE PO PRN (15:22)
[2024-03-11] MEDS ORDERED: IBUPROFEN 400 MG TABLET (FP) PO PRN (15:22)
[2024-03-11] MEDS ORDERED: IBUPROFEN 600 MG TABLET (FP) PO PRN (15:22)
[2024-03-11] MEDS ORDERED: DICYCLOMINE HCL 10 MG CAPSULE PO PRN (15:22)
[2024-03-11] MEDS ORDERED: BENZOCAINE/MENTHOL (CHLORASEPTIC ) LOZENGE MM PRN (15:22)
[2024-03-11] MEDS ORDERED: guaiFENesin 600 MG TABLET.ER (FP) PO PRN (15:22)
[2024-03-11] MEDS ORDERED: NICOTINE POLACRILEX 2 MG LOZENGE BC PRN (15:22)
[2024-03-11] MEDS ORDERED: BISMUTH SUBSALICYLATE 262 MG/15 ML BTL PO PRN (15:22)
[2024-03-11] MEDS ORDERED: MAG HYDROX/AL HYDROX/SIMETH 30 ML UNIT-DOSE CUP PO PRN (15:22)
[2024-03-11] MEDS ORDERED: NICOTINE POLACRILEX 2 MG GUM BUC PRN (15:22)
[2024-03-11] MEDS ORDERED: POLYETHYLENE GLYCOL (HEALTHYLAX) 3350 17 GM PACKET PO PRN (15:22)
[2024-03-11] MEDS ORDERED: MAGNESIUM HYDROX 2400MG/30ML ORAL SUSPENSION 30 ML CUP PO PRN (15:22)
[2024-03-11] MEDS ORDERED: diazePAM 5 MG TABLET ONE (17:29)
[2024-03-11] MEDS: diazePAM 5 MG TABLET PO SCH (17:32)
[2024-03-11] MEDS: ACETAMINOPHEN 325 MG TABLET (FP) PO PRN (17:51)
[2024-03-11] MEDS: THIAMINE 100 MG TABLET PO SCH (22:33)
[2024-03-11] MEDS: ONDANSETRON *ODT* 4 MG TABLET SL PRN (22:33)
[2024-03-11] MEDS: MELATONIN 5 MG TABLETS PO SCH (22:47)
[2024-03-11] MEDS: TRIMETHOBENZAMIDE HCL 200MG/2ML INJ IM ONE (23:05)
[2024-03-12] MEDS: METHOCARBAMOL 500 MG TABLET PO PRN (10:16)
[2024-03-12] MEDS: hydrOXYzine PAMOATE 25 MG CAPSULE (FP) PO PRN (10:16)
[2024-03-12] MEDS: PRENATAL VITAMINS W/ FOLIC ACID TABLET (FP) PO SCH (10:16)
[2024-03-12] MEDS: PNEUMOC 20-VAL CONJ-DIP CRM/PF 0.5 ML SYRINGE IM ONE (11:26)
[2024-03-12] MEDS: QUEtiapine FUMARATE 400 MG TABLET PO SCH (22:33)
[2024-03-13] MEDS: diazePAM 5 MG TABLET PO SCH (05:31)
[2024-03-13] MEDS: diazePAM 5 MG TABLET PO PRN (17:22)
[2024-03-14] MEDS: diazePAM 5 MG TABLET PO SCH (05:26)
[2024-03-14 20:52] VITALS: RESP 18
[2024-03-15] MEDS: diazePAM 5 MG TABLET PO ONE (05:26)
[2024-03-15 09:19] VITALS: BP 127/86; PULSE 99; TEMP 97.6
== END 2024-03-15 09:51 | disposition home or self-care (01) | DRG 897 ==
LOC: YASAS 12:36 → Y6N 17:09
PROVIDERS: ADMIT Allergy & Immunology; ATTEND Surgery
PROC: HZ2ZZZZ Detoxification Services for Substance Abuse Treatment (ICD-10-PCS; principal; 2024-03-11)
DX: F10.230 Alcohol dependence with withdrawal, uncomplicated (principal); F14.20 Cocaine dependence, uncomplicated; F20.0 Paranoid schizophrenia; F12.20 Cannabis dependence, uncomplicated; F17.210 Nicotine dependence, cigarettes, uncomplicated; M54.50 Low back pain, unspecified; G89.29 Other chronic pain
CPT/HCPCS: 36415; 80305; 80307; 90677; G0009; Q0162